=== PATIENT | male | born 1960 | race Caucasian/White ===

== ENCOUNTER 2023-01-09 06:19 | Emergency (ER) | payer MEDICAID ==
[~2023-01-09] VITALS: Ht 172.7 cm; Wt 75.0 kg
[~2023-01-09 06:19] MED LIST: LANTUS SQ; NEOM3.5O9 LEFTEYE; PANT40TA54 PO
[2023-01-09 07:03] VITALS: TEMP 97
[2023-01-09] MEDS ORDERED: normal saline 1000ML IV soln IVB ONE (07:10)
[2023-01-09 08:00] LABS: BASOPHILS % (AUTO) 0.6 % (0-1); EOSINOPHILS # (AUTO) 0.1 X10'3 (0-0.9); EOSINOPHILS % (AUTO) 1.3 % (0-6); HEMATOCRIT 39.5 % (42.0-52.0); HEMOGLOBIN 13.5 g/dl (14.0-17.9); LYMPHOCYTES # (AUTO) 1.2 X10'3 (1.1-4.8); LYMPHOCYTES % (AUTO) 14.1 % (21-51); MEAN CORPUSCULAR HEMOGLOBIN 34.5 PG (27.0-31.0); MEAN CORPUSCULAR HGB CONC 34.3 g/dL (33.0-36.5); MEAN CORPUSCULAR VOLUME 100.5 FL (78-98); MEAN PLATELET VOLUME 9.8 FL (7.4-10.4); MONOCYTES % (AUTO) 11.7 % (2-12); NEUTROPHILS # (AUTO) 5.9 X10'3 (1.8-7.7); NEUTROPHILS % (AUTO) 72.3 % (42-75); PLATELET COUNT 98 X10'3 (140-440); RED BLOOD COUNT 3.93 X10'6 (4.70-6.10); RED CELL DISTRIBUTION WIDTH 15.1 % (11.5-14.5); WHITE BLOOD COUNT 8.2 X10'3 (4.5-11.0)
--- NOTE | 2023-01-09 08:03 | NUR ---
PATIENT WITH MULTIPLE EPISODES OF SWINGING ARMS AND SWEARING AT STAFF, PATIENT AMBULATORY AND ALERT AND ORIENTED WHEN ASKING FOR SUPPLIES. THIS RN ATTEMPTED MULTIPLE TIMES TO RE-DIRECT PATIENT AND ASSIST PATIENT TO RESTROOM. PATIENT AMBULATED TO THE WALL AND URINATED THROUGHOUT THE ROOM. PER DR. FERNANDES, PATIENT OK TO GO TO THE BUS STOP. PATIENT REFUSING TO GIVE STAFF ADDRESS FOR A CAB. PATIENT NOTED INTERMITTENTLY NOT TALKING TO STAFF BUT HAS DEMONSTRATED ABILITY TO THIS RN FOR AMBULATION AND ALERT AND ORIENTED. ESCORTED OUT BY RN AND SECURITY.
[2023-01-09 08:08] VITALS: BP 138/78; PULSE 87; RESP 18; O2SAT 99
[2023-01-09 08:36] LABS: ALANINE AMINOTRANSFERASE 54 U/L (12-78); ALBUMIN 2.2 G/DL (3.4-5.0); ALBUMIN/GLOBULIN RATIO 0.5 (1.1-1.5); ALKALINE PHOSPHATASE 163 IU/L (46-116); ANION GAP 8 (8-16); ASPARTATE AMINO TRANSFERASE 44 U/L (10-37); BILIRUBIN,TOTAL 1.7 MG/DL (0.1-1.0); BLOOD UREA NITROGEN 13 MG/DL (7-18); BUN/CREATININE RATIO 14.6 (10.0-20.0); CALCIUM 8.1 MG/DL (8.5-10.1); CHLORIDE 108 MMOL/L (99-107); CREATININE 0.89 MG/DL (0.60-1.10); LIPASE 85 U/L (73-393); POTASSIUM 4.3 MMOL/L (3.5-5.1); SODIUM 139 MMOL/L (135-145); TOTAL CARBON DIOXIDE 23.1 MMOL/L (24-32); TOTAL PROTEIN 6.6 G/DL (6.4-8.2); eGFR 87 ML/MIN
[2023-01-09 08:40] LABS: LARGE PLATELETS FEW; PLATELET ESTIMATE DECREASED
[2023-01-09 08:44] LABS: GLUCOSE 416 MG/DL (70-104)
[2023-01-09] MEDS ORDERED: INSU100V56 SQ (23:42)
[2023-01-09] MEDS ORDERED: PANT-47 PO (23:47)
[2023-01-09] MEDS ORDERED: NEOM3.5O31 LEFTEYE (23:47)
== END 2023-01-09 08:09 | disposition left against medical advice (07) ==
LOC: ER 06:19
DX: R45.1 Restlessness and agitation (principal); F15.90 Other stimulant use, unspecified, uncomplicated; Z86.19 Personal history of other infectious and parasitic diseases; Z79.4 Long term (current) use of insulin; Z79.2 Long term (current) use of antibiotics; Z79.899 Other long term (current) drug therapy
CPT/HCPCS: 36415; 80053; 82009; 82948; 83690; 85008; 85025; 99283; J7030

== ENCOUNTER 2023-01-09 16:32 | Inpatient (IN) | payer MEDICAID ==
[~2023-01-09] VITALS: Ht 167.6 cm; Wt 68.2 kg
[2023-01-09] MEDS ORDERED: normal saline 1000ml 1,000 ML IV ONE (17:25)
[2023-01-09 17:44] LABS: CLARITY,URINE SLIGHTLY CLOUDY (Clear); COLOR,URINE YELLOW (Yellow); GLUCOSE, URINE >=1000 mg/dl (Neg); KETONES,URINE NEGATIVE (Neg); LEUKOCYTE ESTERASE ,URINE NEGATIVE (Neg); NITRITES, URINE NEGATIVE (Neg); OCCULT BLOOD,URINE NEGATIVE (Neg); PROTEIN,URINE NEGATIVE (Neg)
[2023-01-09] MEDS ORDERED: normal saline 1000ML IV soln IVB ONE (17:50)
[2023-01-09 17:55] LABS: ALANINE AMINOTRANSFERASE 62 U/L (12-78); ALBUMIN 2.8 G/DL (3.4-5.0); ALBUMIN/GLOBULIN RATIO 0.6 (1.1-1.5); ALKALINE PHOSPHATASE 131 IU/L (46-116); ANION GAP 10 (8-16); ASPARTATE AMINO TRANSFERASE 44 U/L (10-37); BILIRUBIN,TOTAL 2.7 MG/DL (0.1-1.0); BLOOD UREA NITROGEN 16 MG/DL (7-18); BUN/CREATININE RATIO 13.7 (10.0-20.0); CHLORIDE 110 MMOL/L (99-107); CREATININE 1.17 MG/DL (0.60-1.10); POTASSIUM 4.1 MMOL/L (3.5-5.1); SODIUM 143 MMOL/L (135-145); TOTAL CARBON DIOXIDE 22.6 MMOL/L (24-32); TOTAL PROTEIN 7.6 G/DL (6.4-8.2); eGFR 63 ML/MIN
[2023-01-09 17:59] LABS: UA COLLECTION TYPE FOLEY CATH
[2023-01-09 18:00] LABS: RENAL CELLS, URINE MANY /HPF; SQUAMOUS EPITHELIAL CELL,UR FEW /LPF (FEW)
[2023-01-09 18:01] LABS: BASOPHILS % (AUTO) 0.5 % (0-1); EOSINOPHILS % (AUTO) 0.6 % (0-6); HEMATOCRIT 42.5 % (42.0-52.0); HEMOGLOBIN 14.7 g/dl (14.0-17.9); LYMPHOCYTES # (AUTO) 1.3 X10'3 (1.1-4.8); LYMPHOCYTES % (AUTO) 18.8 % (21-51); MEAN CORPUSCULAR HEMOGLOBIN 34.7 PG (27.0-31.0); MEAN CORPUSCULAR HGB CONC 34.7 g/dL (33.0-36.5); MEAN CORPUSCULAR VOLUME 99.9 FL (78-98); MEAN PLATELET VOLUME 10.1 FL (7.4-10.4); MONOCYTES # (AUTO) 0.8 X10'3 (0-0.9); MONOCYTES % (AUTO) 11.5 % (2-12); NEUTROPHILS # (AUTO) 4.7 X10'3 (1.8-7.7); NEUTROPHILS % (AUTO) 68.6 % (42-75); PLATELET COUNT 124 X10'3 (140-440); RED BLOOD COUNT 4.25 X10'6 (4.70-6.10); RED CELL DISTRIBUTION WIDTH 14.9 % (11.5-14.5); WHITE BLOOD COUNT 6.9 X10'3 (4.5-11.0)
[2023-01-09 18:01] LABS: BACTERIA,URINE FEW /HPF (Neg); MUCUS STRANDS FEW /LPF (Neg); RBC,URINE 0-2 /HPF (0-2); TRANSITIONAL EPI CELLS,URINE FEW /HPF; WBC,URINE 0-4 /HPF (0-4)
[2023-01-09 18:07] LABS: URINE AMPHETAMINE SCREEN NEGATIVE (Neg); URINE BARBITUATE SCREEN NEGATIVE (Neg); URINE BENZODIAZEPINES SCREEN NEGATIVE (Neg); URINE CANNABINOID SCREEN POSITIVE (Neg); URINE COCAINE SCREEN NEGATIVE (Neg); URINE METHADONE SCREEN NEGATIVE (Neg); URINE OPIATE SCREEN NEGATIVE (Neg); URINE PHENCYCLIDINE SCREEN NEGATIVE (Neg)
[2023-01-09 19:26] LABS: LIPASE < 50 U/L (73-393)
[2023-01-09 19:27] LABS: ETHANOL < 0.010 GM/DL (0.0-0.010); GLUCOSE 380 MG/DL (70-104)
--- NOTE | 2023-01-09 21:20 | NUR ---
pt placed on hospital bed.
[2023-01-09] MEDS ORDERED: potassium Cl 20 mEq SR tablet PO PRN ×2 (22:00)
[2023-01-09] MEDS ORDERED: dextrose 50%-water 50ml dispensing syringe IV PRN ×2 (22:00)
[2023-01-09] MEDS ORDERED: haloperidol 5mg tablet PO PRN (22:00)
[2023-01-09] MEDS ORDERED: magnesium 4gm in 100ml NS 100 ML IV PRN (22:00)
[2023-01-09] MEDS ORDERED: MESSAGE TO PHARMACY PO ONE (22:00)
[2023-01-09] MEDS ORDERED: glucagon, human recombinant 1mg kit SUBCUT PRN (22:00)
[2023-01-09] MEDS ORDERED: LORazepam 2 mg/ml vial IV PRN (22:00)
[2023-01-09] MEDS ORDERED: mag hydrox/Alum hydrox/simeth 30ml oral suspension PO PRN (22:00)
[2023-01-09] MEDS ORDERED: acetaminophen 325mg tablet PO PRN (22:00)
[2023-01-09] MEDS ORDERED: potassium Cl 40MEQ/1/2NS 520ml 520 ML IV PRN (22:00)
[2023-01-09] MEDS ORDERED: DEXTROSE 15 GM of carb/4 tabs (each vial/BOTTLE has 4 tablets) PO PRN ×2 (22:00)
[2023-01-09] MEDS ORDERED: ondansetron/PF 4mg/2ml inj IV PRN (22:00)
--- NOTE | 2023-01-09 22:20 | NUR ---
PT GIVEN FOOD PER CL. LIQUID DIET.
[2023-01-09] MEDS: normal saline 1000ml 1,000 ML IV SCH (22:27)
--- NOTE | 2023-01-09 22:44 | NUR ---
OKAY TO GIVE UPDATES TO ALMA, SISTER, PER PT.
--- NOTE | 2023-01-09 22:46 | NUR ---
DR. TRAORE MADE AWARE OF & IS OKAY WITH PT'S HR BEING IN LOW 50'S/HIGH 40'S LONG PT IS AYSMPTOMATIC. PT ASYMPTOMATIC.
[2023-01-09] MEDS ORDERED: INSU100V56 SQ (23:42)
[2023-01-09] MEDS ORDERED: PANT-47 PO (23:47)
[2023-01-09] MEDS ORDERED: NEOM3.5O31 LEFTEYE (23:47)
[2023-01-10] MEDS: lactulose 20gm/30ml cup PO SCH ×4 (02:14→20:00)
[2023-01-10 02:36] LABS: ALANINE AMINOTRANSFERASE 47 U/L (12-78); ALBUMIN/GLOBULIN RATIO 0.5 (1.1-1.5); ALKALINE PHOSPHATASE 91 IU/L (46-116); ANION GAP 7 (8-16); ASPARTATE AMINO TRANSFERASE 31 U/L (10-37); BILIRUBIN,TOTAL 2.2 MG/DL (0.1-1.0); BLOOD UREA NITROGEN 14 MG/DL (7-18); BUN/CREATININE RATIO 17.9 (10.0-20.0); CALCIUM 8.3 MG/DL (8.5-10.1); CHLORIDE 114 MMOL/L (99-107); CREATININE 0.78 MG/DL (0.60-1.10); GLUCOSE 260 MG/DL (70-104); LIPASE 54 U/L (73-393); MAGNESIUM 1.7 MG/DL (1.5-2.4); PHOSPHORUS 3.1 MG/DL (2.3-4.5); POTASSIUM 3.7 MMOL/L (3.5-5.1); SODIUM 145 MMOL/L (135-145); TOTAL CARBON DIOXIDE 24.3 MMOL/L (24-32); TOTAL PROTEIN 5.8 G/DL (6.4-8.2); eGFR > 90 ML/MIN
[2023-01-10 02:37] LABS: BASOPHILS # (AUTO) 0.1 X10'3 (0-0.2); BASOPHILS % (AUTO) 0.8 % (0-1); EOSINOPHILS # (AUTO) 0.1 X10'3 (0-0.9); EOSINOPHILS % (AUTO) 1.5 % (0-6); HEMATOCRIT 38.5 % (42.0-52.0); HEMOGLOBIN 13.1 g/dl (14.0-17.9); LYMPHOCYTES # (AUTO) 2.8 X10'3 (1.1-4.8); LYMPHOCYTES % (AUTO) 32.5 % (21-51); MEAN CORPUSCULAR HGB CONC 34.1 g/dL (33.0-36.5); MEAN CORPUSCULAR VOLUME 99.7 FL (78-98); MEAN PLATELET VOLUME 9.5 FL (7.4-10.4); MONOCYTES # (AUTO) 1.3 X10'3 (0-0.9); MONOCYTES % (AUTO) 14.9 % (2-12); NEUTROPHILS # (AUTO) 4.4 X10'3 (1.8-7.7); NEUTROPHILS % (AUTO) 50.3 % (42-75); PLATELET COUNT 101 X10'3 (140-440); RED BLOOD COUNT 3.86 X10'6 (4.70-6.10); RED CELL DISTRIBUTION WIDTH 15.2 % (11.5-14.5); WHITE BLOOD COUNT 8.7 X10'3 (4.5-11.0)
--- NOTE | 2023-01-10 06:39 | NUR ---
RN ATTEMPTED TO CALL REPORT AND RECEIVING RN IN RM WITH A PT. RN REQ SHE CALL BACK NADEEN CHARGE STATED RM NEEDED.
[2023-01-10 07:00] VITALS: BP 131/55; PULSE 63; RESP 16; TEMP 98.2; O2SAT 98
[2023-01-10] MEDS: K and/or MAG REPLACEMENT MC SCH ×2 (08:00→20:00)
[2023-01-10] MEDS: docusate sod 100mg capsule PO SCH ×2 (08:41→20:00)
[2023-01-10] MEDS: thiamine 100mg tablet PO SCH ×2 (08:42→20:00)
[2023-01-10] MEDS: multivitamins, therapeutics tablet PO SCH (08:42)
[2023-01-10] MEDS: pantoprazole 40mg Tablet.DR PO SCH (08:44)
[2023-01-10] MEDS: normal saline 1000ml 1,000 ML IV SCH ×2 (08:51→18:01)
[2023-01-10] MEDS: insulin Lispro (HumaLOG) vial - multi-dose SQ SCH ×3 (09:03→19:04)
[2023-01-10 09:35] VITALS: RESP 14
[2023-01-10 10:00] VITALS: BP 130/63; PULSE 60; RESP 16; TEMP 97.4; O2SAT 99
--- NOTE | 2023-01-10 15:02 | NUR ---
PRESSURE ULCER EDUCATION: DEFINITION: A pressure ulcer is an area of skin that breaks down when you stay in one position too long. The constant pressure against the skin reduces the blood flow to that area and the affected tissue dies. CAUSES: "Being bedridden or in a wheelchair "Fragile skin "Having a chronic condition, such as diabetes or vascular disease "Inability to move certain parts of your body without assistance "Older age "Incontinence of urine or stool SYMPTOMS: "A reddened area that DOES NOT turn white when pressed on - this can be the beginning of a pressure ulcer "A blister, deep sore or a crater - these can be advanced pressure ulcers FIRST AID: "Relieve the pressure on this area "Keep the area clean and dry "Call your primary doctor if you see any of the above symptoms "DO NOT massage the area "DO NOT use a donut shaped or ring shaped pillow- these actually interfere with the blood flow and cause complications PREVENTION: "Check for pressure ulcers everyday "Change position at least every two hours to relieve pressure "Use items that help relieve pressure- pillows, sheepskin, foam padding, and powders. "Keep skin clean and dry "Eat healthy well balanced meals "Exercise daily IF YOU SEE ANY OF THESE SYMPTOMS WHILE IN THE HOSPITAL - TELL YOUR NURSE IMMEDIATELY. IF YOU SEE ANY OF THESE SYMPTOMS WHILE AT HOME OR HAVE ANY QUESTIONS OR CONCERNS ABOUT PRESSURE ULCERS - CALL YOUR PRIMARY DOCTOR IMMEDIATELY. Addendum: 01/10/23 at 1502 by Daria Brewer LVN Amended: Links added.
--- NOTE | 2023-01-10 15:03 | NUR ---
The following was taken from the patients H&P: This 62 yr. old male was brought to the ER with ALOC probable R/t heat exposure. She was found to have a BG of 425. His behavior became erratic and he left AMA but was returned after being found slumped over by paramedics. He has a medical history of liver failure w/cirrhosis, Hep C, recurrent BLE cellulitis and DM. He reports using tobacco daily. He uses alcohol daily and reports the consistent use of methamphetamines. He states that he lives at home with family. CXR was positive for central interstitium prominence. His most recent labs show a WBC of 8.7, HGB 13.1, BUN 14, BG 310 and an albumin of 2. Urine toxicology was positive for marijuana. He was admitted for medical management of acute hepatic encephalopathy with high serum ammonia level per progress notes. Wound care in for evaluation of sacrococcygeal skin breakdown per nursing consult request. The pt. was found sitting up in bed in no apparent acute distress. Greeted and explained the intent. He appears to be alert to himself and the situation. He states that he is very hungry. Per nursing he has eaten all of his breakfast and many snacks, it is near lunch time and he has been reminded that lunch is soon to be served. He continues to state that he is extremely hungry but is agreeable to care. There is discoloration to his left hand with dry scabbing to the dorsal aspect. His bilateral LEs are mildly edematous with intact and reddened skin. His sacrococcygeal area has pink and blanching skin. Hi heels have thickened, normal for color skin. His legs and feet were cleansed and lotion applied. He is able to reposition himself in bed with no apparent restrictions. Bed left in the lowest position with call light in reach. Report was given to his primary nurse. Given the patient has no open skin areas and adequate mobility, basic skin care is deferred to nursing.
--- NOTE | 2023-01-10 15:46 | NUR ---
Agree with [facility] [employer] charting
--- NOTE | 2023-01-10 17:00 | NUR ---
I have reviewed and agree with interventions, assessments, and documentation by Aissatou Swanson LVN.
[2023-01-10 18:00] VITALS: BP 134/61; PULSE 56; RESP 14; TEMP 97.4; O2SAT 95
--- NOTE | 2023-01-10 18:00 | NUR ---
Patient in room ORTHO 4010. I have received report from MICAH Reyez and had the opportunity to ask questions and assume patient care.
--- NOTE | 2023-01-10 18:14 | NUR ---
Problems reprioritized. Patient report given, questions answered & plan of care reviewed with Madeleine MORALES.
[2023-01-10] MEDS ORDERED: enoxaparin 40mg/0.4ml syringe SQ SCH (20:00)
[2023-01-10] MEDS: insulin glargine (Lantus) pen - multi-dose SQ SCH (21:06)
[2023-01-10 22:00] VITALS: BP 116/61; PULSE 61; RESP 18; TEMP 98.9; O2SAT 97
[2023-01-11] MEDS: lactulose 20gm/30ml cup PO SCH ×4 (01:54→19:54)
[2023-01-11] MEDS: normal saline 1000ml 1,000 ML IV SCH ×3 (01:55→19:55)
[2023-01-11 06:00] VITALS: BP 111/60; PULSE 61; RESP 18; TEMP 99.1; O2SAT 97
--- NOTE | 2023-01-11 06:08 | NUR ---
Problems reprioritized. Patient report given, questions answered & plan of care reviewed with MICAH Reyez.
[2023-01-11 06:14] LABS: BASOPHILS # (AUTO) 0.1 X10'3 (0-0.2); BASOPHILS % (AUTO) 1.4 % (0-1); EOSINOPHILS # (AUTO) 0.1 X10'3 (0-0.9); HEMATOCRIT 37.9 % (42.0-52.0); HEMOGLOBIN 13.1 g/dl (14.0-17.9); LYMPHOCYTES # (AUTO) 2.9 X10'3 (1.1-4.8); LYMPHOCYTES % (AUTO) 41.8 % (21-51); MEAN CORPUSCULAR HEMOGLOBIN 34.5 PG (27.0-31.0); MEAN CORPUSCULAR HGB CONC 34.5 g/dL (33.0-36.5); MEAN CORPUSCULAR VOLUME 100.2 FL (78-98); MEAN PLATELET VOLUME 9.7 FL (7.4-10.4); MONOCYTES % (AUTO) 14.9 % (2-12); NEUTROPHILS # (AUTO) 2.7 X10'3 (1.8-7.7); NEUTROPHILS % (AUTO) 39.9 % (42-75); PLATELET COUNT 97 X10'3 (140-440); RED BLOOD COUNT 3.79 X10'6 (4.70-6.10); RED CELL DISTRIBUTION WIDTH 14.8 % (11.5-14.5); WHITE BLOOD COUNT 6.8 X10'3 (4.5-11.0)
[2023-01-11 06:38] LABS: ALANINE AMINOTRANSFERASE 49 U/L (12-78); ALBUMIN 1.9 G/DL (3.4-5.0); ALBUMIN/GLOBULIN RATIO 0.5 (1.1-1.5); ALKALINE PHOSPHATASE 98 IU/L (46-116); ANION GAP 5 (8-16); ASPARTATE AMINO TRANSFERASE 44 U/L (10-37); BILIRUBIN,TOTAL 1.8 MG/DL (0.1-1.0); BLOOD UREA NITROGEN 11 MG/DL (7-18); BUN/CREATININE RATIO 12.6 (10.0-20.0); CALCIUM 8.3 MG/DL (8.5-10.1); CHLORIDE 108 MMOL/L (99-107); CREATININE 0.87 MG/DL (0.60-1.10); GLUCOSE 238 MG/DL (70-104); LIPASE 75 U/L (73-393); MAGNESIUM 1.6 MG/DL (1.5-2.4); POTASSIUM 3.8 MMOL/L (3.5-5.1); SODIUM 137 MMOL/L (135-145); TOTAL CARBON DIOXIDE 23.6 MMOL/L (24-32); TOTAL PROTEIN 5.7 G/DL (6.4-8.2); eGFR 89 ML/MIN
[2023-01-11] MEDS: docusate sod 100mg capsule PO SCH ×2 (07:22→19:55)
[2023-01-11] MEDS: multivitamins, therapeutics tablet PO SCH (07:22)
[2023-01-11] MEDS: pantoprazole 40mg Tablet.DR PO SCH (07:22)
[2023-01-11] MEDS: thiamine 100mg tablet PO SCH ×2 (07:23→19:54)
[2023-01-11 08:00] VITALS: RESP 16; O2SAT 99
[2023-01-11] MEDS: K and/or MAG REPLACEMENT MC SCH ×2 (09:01→18:43)
--- NOTE | 2023-01-11 09:12 | NUR ---
Per EMR pt with T2DM, poorly controlled with last A1c >12.0% 12/27. Pt was seen at bedside 12/28 at previous admit for written and verbal DM education. RD contact information provided at that time. No further education planned at this time though will remain available should pt have questions. Noted wound care has been consulted for possible DTI to buttocks, assessment pending at this time. Pt currently on a CHO controlled diet and documented with 100% PO intake of meals. Pt requested double protein TID at previous admit, will resume this admit for satiety. Will continue to follow and monitor need for further nutrition intervention. Addendum: 01/11/23 at [address] Amended: Links added.
[2023-01-11] MEDS: insulin Lispro (HumaLOG) vial - multi-dose SQ SCH ×3 (09:16→19:52)
[2023-01-11 10:00] VITALS: BP_SYST 108; BP_DIAS 55; BP_DIAS 88; PULSE 56; RESP 16; TEMP 98.2; O2SAT 99
[2023-01-11 18:00] VITALS: BP 123/55; PULSE 60; RESP 18; TEMP 98.4; O2SAT 98
--- NOTE | 2023-01-11 18:00 | NUR ---
I have reviewed and agree with the interventions, assessments, and documentation by Aissatou Swanson LVN.
[2023-01-11 19:00] VITALS: RESP 16; O2SAT 98
[2023-01-11] MEDS: insulin glargine (Lantus) pen - multi-dose SQ SCH (21:00)
[2023-01-11 22:00] VITALS: BP 104/55; PULSE 70; RESP 16; TEMP 98.5; O2SAT 97
[2023-01-11] MEDS ORDERED: LORazepam 2 mg/ml vial IV PRN (22:00)
[2023-01-11] MEDS ORDERED: LORazepam 1 MG tablet PO PRN (22:00)
[2023-01-12] MEDS: lactulose 20gm/30ml cup PO SCH ×4 (03:28→19:21)
[2023-01-12] MEDS: normal saline 1000ml 1,000 ML IV SCH (05:07)
[2023-01-12 06:00] VITALS: BP 122/45; PULSE 72; RESP 16; TEMP 98.2; O2SAT 99
[2023-01-12 06:11] LABS: BASOPHILS # (AUTO) 0.1 X10'3 (0-0.2); BASOPHILS % (AUTO) 0.8 % (0-1); EOSINOPHILS # (AUTO) 0.1 X10'3 (0-0.9); EOSINOPHILS % (AUTO) 1.9 % (0-6); HEMATOCRIT 38.8 % (42.0-52.0); HEMOGLOBIN 13.6 g/dl (14.0-17.9); LYMPHOCYTES # (AUTO) 2.4 X10'3 (1.1-4.8); LYMPHOCYTES % (AUTO) 32.8 % (21-51); MEAN CORPUSCULAR HEMOGLOBIN 34.8 PG (27.0-31.0); MEAN CORPUSCULAR HGB CONC 34.9 g/dL (33.0-36.5); MEAN CORPUSCULAR VOLUME 99.7 FL (78-98); MEAN PLATELET VOLUME 9.8 FL (7.4-10.4); MONOCYTES # (AUTO) 1.2 X10'3 (0-0.9); MONOCYTES % (AUTO) 15.5 % (2-12); NEUTROPHILS # (AUTO) 3.6 X10'3 (1.8-7.7); PLATELET COUNT 95 X10'3 (140-440); RED BLOOD COUNT 3.89 X10'6 (4.70-6.10); RED CELL DISTRIBUTION WIDTH 15.2 % (11.5-14.5); WHITE BLOOD COUNT 7.4 X10'3 (4.5-11.0)
[2023-01-12 06:15] LABS: ALANINE AMINOTRANSFERASE 59 U/L (12-78); ALBUMIN 2.1 G/DL (3.4-5.0); ALBUMIN/GLOBULIN RATIO 0.5 (1.1-1.5); ALKALINE PHOSPHATASE 109 IU/L (46-116); ANION GAP 5 (8-16); ASPARTATE AMINO TRANSFERASE 63 U/L (10-37); BILIRUBIN,TOTAL 1.6 MG/DL (0.1-1.0); BLOOD UREA NITROGEN 12 MG/DL (7-18); BUN/CREATININE RATIO 13.8 (10.0-20.0); CALCIUM 8.3 MG/DL (8.5-10.1); CHLORIDE 104 MMOL/L (99-107); CREATININE 0.87 MG/DL (0.60-1.10); GLUCOSE 374 MG/DL (70-104); LIPASE 110 U/L (73-393); MAGNESIUM 1.6 MG/DL (1.5-2.4); PHOSPHORUS 2.8 MG/DL (2.3-4.5); POTASSIUM 4.3 MMOL/L (3.5-5.1); SODIUM 133 MMOL/L (135-145); TOTAL CARBON DIOXIDE 23.8 MMOL/L (24-32); TOTAL PROTEIN 6.2 G/DL (6.4-8.2); eGFR 89 ML/MIN
[2023-01-12 06:51] LABS: PLATELET ESTIMATE DECREASED; TOTAL CELLS COUNTED 100
[2023-01-12 06:52] LABS: LARGE PLATELETS FEW
[2023-01-12] MEDS: thiamine 100mg tablet PO SCH ×2 (07:23→19:21)
[2023-01-12] MEDS: docusate sod 100mg capsule PO SCH ×2 (07:23→19:21)
[2023-01-12] MEDS: multivitamins, therapeutics tablet PO SCH (07:23)
[2023-01-12] MEDS: pantoprazole 40mg Tablet.DR PO SCH (07:23)
[2023-01-12 08:00] VITALS: RESP 20; O2SAT 97
[2023-01-12] MEDS: K and/or MAG REPLACEMENT MC SCH ×2 (08:00→19:25)
[2023-01-12] MEDS: insulin Lispro (HumaLOG) vial - multi-dose SQ SCH ×2 (09:31→18:55)
[2023-01-12 10:00] VITALS: BP 125/64; PULSE 63; RESP 20; TEMP 98.1; O2SAT 97
--- NOTE | 2023-01-12 10:59 | NUR ---
Initial: Pt admit for acute encephalopathy secondary to hepatic encephalopathy. Wound care assessment for possible DTI on buttocks still pending at this time. Pt on a CHO controlled diet and receiving double protein TID and eating well, documented with 100% PO intake of all meals meeting estimated nutrient needs. Pt continues receiving routine Thiamine, Folic acid, and MVI for EtOH. LBM 8/, documented with no GI symptoms though likely to experience diarrhea secondary to routine Lactulose. Serum ammonia elevated this morning at 173 which is down from 176 8/. No further nutrition intervention implemented at this time. Will continue to follow and make recommendations as appropriate. Recommendations: 1) Continue CHO controlled diet 2) Double eggs WB, double meat BIDLD 3) Continue routine Thiamine, Folic acid, and MVI for EtOH hx with elevated MCV 4) Routine bowel care per rx 5) Scaled weight this admit; subsequent weekly scaled weights Addendum: 01/12/23 at [address] Amended: Links added.
--- NOTE | 2023-01-12 11:13 | NUR ---
F/u: Pt seen by wound care, per note it appears pt does not have any open wounds. No further nutrition intervention warranted at this time. Will continue to follow. Addendum: 01/12/23 at [address] Amended: Links added.
--- NOTE | 2023-01-12 18:00 | NUR ---
I have reviewed and agree with interventions, assessments, and documentation by Asisatou Swanson LVN.
[2023-01-12 19:00] VITALS: BP 142/70; PULSE 55; RESP 20; TEMP 97.6; O2SAT 99
[2023-01-12 20:00] VITALS: RESP 20; O2SAT 99
[2023-01-12] MEDS: insulin glargine (Lantus) pen - multi-dose SQ SCH (21:42)
[2023-01-12 22:00] VITALS: BP 118/65; PULSE 67; RESP 16; TEMP 98.1; O2SAT 98
--- NOTE | 2023-01-12 22:36 | NUR ---
Patient in room ORTHO 4010. I have received report from rebekah wakefield and had the opportunity to ask questions and assume patient care.
--- NOTE | 2023-01-12 23:33 | NUR ---
COOPERATIVE MANAGER documentation: I have reviewed and agree with all interventions, assessments performed and documented by Aissatou OBRIEN .
[2023-01-13] MEDS: lactulose 20gm/30ml cup PO SCH ×2 (01:34→07:48)
--- NOTE | 2023-01-13 02:14 | NUR ---
Problems reprioritized. Patient report given, questions answered & plan of care reviewed with truman alvarado.
[2023-01-13 06:00] VITALS: BP 142/85; PULSE 76; RESP 16; TEMP 98.4; O2SAT 95
--- NOTE | 2023-01-13 06:25 | NUR ---
Patient in room ORTH[facility] 4010. I have received report from Daniela MORALES and had the opportunity to ask questions and assume patient care.
--- NOTE | 2023-01-13 06:39 | NUR ---
Report to Rosemarie Spence.
[2023-01-13 06:50] LABS: BASOPHILS # (AUTO) 0.1 X10'3 (0-0.2); BASOPHILS % (AUTO) 1.1 % (0-1); EOSINOPHILS # (AUTO) 0.2 X10'3 (0-0.9); EOSINOPHILS % (AUTO) 2.1 % (0-6); HEMATOCRIT 40.6 % (42.0-52.0); HEMOGLOBIN 14.1 g/dl (14.0-17.9); LYMPHOCYTES # (AUTO) 2.4 X10'3 (1.1-4.8); LYMPHOCYTES % (AUTO) 29.5 % (21-51); MEAN CORPUSCULAR HEMOGLOBIN 34.8 PG (27.0-31.0); MEAN CORPUSCULAR HGB CONC 34.8 g/dL (33.0-36.5); MEAN CORPUSCULAR VOLUME 99.9 FL (78-98); MEAN PLATELET VOLUME 9.5 FL (7.4-10.4); MONOCYTES # (AUTO) 1.1 X10'3 (0-0.9); MONOCYTES % (AUTO) 13.1 % (2-12); NEUTROPHILS # (AUTO) 4.4 X10'3 (1.8-7.7); NEUTROPHILS % (AUTO) 54.2 % (42-75); PLATELET COUNT 100 X10'3 (140-440); RED BLOOD COUNT 4.06 X10'6 (4.70-6.10); RED CELL DISTRIBUTION WIDTH 15.2 % (11.5-14.5); WHITE BLOOD COUNT 8.2 X10'3 (4.5-11.0)
[2023-01-13 07:03] LABS: ALANINE AMINOTRANSFERASE 61 U/L (12-78); ALBUMIN 2.2 G/DL (3.4-5.0); ALBUMIN/GLOBULIN RATIO 0.5 (1.1-1.5); ALKALINE PHOSPHATASE 101 IU/L (46-116); ANION GAP 7 (8-16); ASPARTATE AMINO TRANSFERASE 56 U/L (10-37); BILIRUBIN,TOTAL 2.1 MG/DL (0.1-1.0); BLOOD UREA NITROGEN 11 MG/DL (7-18); BUN/CREATININE RATIO 13.6 (10.0-20.0); CALCIUM 8.5 MG/DL (8.5-10.1); CHLORIDE 104 MMOL/L (99-107); CREATININE 0.81 MG/DL (0.60-1.10); GLUCOSE 268 MG/DL (70-104); LIPASE 119 U/L (73-393); MAGNESIUM 1.8 MG/DL (1.5-2.4); PHOSPHORUS 2.8 MG/DL (2.3-4.5); POTASSIUM 4.1 MMOL/L (3.5-5.1); SODIUM 136 MMOL/L (135-145); TOTAL CARBON DIOXIDE 24.8 MMOL/L (24-32); TOTAL PROTEIN 6.5 G/DL (6.4-8.2); eGFR > 90 ML/MIN
[2023-01-13] MEDS: pantoprazole 40mg Tablet.DR PO SCH (07:49)
[2023-01-13] MEDS: thiamine 100mg tablet PO SCH (07:49)
[2023-01-13] MEDS: multivitamins, therapeutics tablet PO SCH (07:49)
[2023-01-13] MEDS: docusate sod 100mg capsule PO SCH (07:49)
[2023-01-13 08:00] VITALS: RESP 16; O2SAT 95
[2023-01-13] MEDS: K and/or MAG REPLACEMENT MC SCH (08:00)
[2023-01-13] MEDS ORDERED: SPIR100T5 PO (09:44)
[2023-01-13] MEDS ORDERED: INSU100V56 SQ ×2 (09:44→10:23)
[2023-01-13] MEDS ORDERED: LACT10SO7 PO ×2 (09:44→10:23)
[2023-01-13] MEDS: insulin Lispro (HumaLOG) vial - multi-dose SQ SCH (10:08)
--- NOTE | 2023-01-13 10:17 | NUR ---
[facility] documentation: I have reviewed and agree with all interventions, assessments performed and documented by Rosemarie Burgess LVN.
--- NOTE | 2023-01-13 12:00 | NUR ---
Spoke with steam fitter supervisor and she approved patient to get a ride home with hospital paying the bill
[2023-01-13] MEDS ORDERED: SPIR25TA5 PO (12:18)
--- NOTE | 2023-01-13 13:30 | NUR ---
Patient discharged home and IV removed by RN. All discharge instructions were explained and questions were answered. Patient alert and appropriate for discharge. Patient was picked up by CAT, approved by housekeeping/laundry. Patient was wheeled downstairs and into [facility] vehicle.
[2023-01-13] MEDS ORDERED: LORazepam 1 MG tablet PO PRN (22:00)
[2023-01-13] MEDS ORDERED: LORazepam 2 mg/ml vial IV PRN (22:00)
[2023-01-14] MEDS ORDERED: folic acid 1mg tablet PO SCH (08:00)
== END 2023-01-13 13:20 | disposition home or self-care (01) ==
LOC: ER 16:32 → ED HOLD 22:12 → ORTHO 4S 01-10 07:52
PROVIDERS: ADMIT Family Medicine; ATTEND Internal Medicine
DX: K76.82 Hepatic encephalopathy (principal); K72.90 Hepatic failure, unspecified without coma; K76.6 Portal hypertension; E46 Unspecified protein-calorie malnutrition; D63.8 Anemia in other chronic diseases classified elsewhere; K74.60 Unspecified cirrhosis of liver; E11.65 Type 2 diabetes mellitus with hyperglycemia; B19.20 Unspecified viral hepatitis C without hepatic coma; D69.59 Other secondary thrombocytopenia; G47.00 Insomnia, unspecified; F10.20 Alcohol dependence, uncomplicated; E86.0 Dehydration; F19.10 Other psychoactive substance abuse, uncomplicated; R74.01 Elevation of levels of liver transaminase levels; F17.210 Nicotine dependence, cigarettes, uncomplicated; F12.90 Cannabis use, unspecified, uncomplicated; F15.90 Other stimulant use, unspecified, uncomplicated; Z79.84 Long term (current) use of oral hypoglycemic drugs; Z91.148 Patient's other noncompliance with medication regimen for other reason; Z68.24 Body mass index [BMI] 24.0-24.9, adult; Z79.899 Other long term (current) drug therapy; Z79.4 Long term (current) use of insulin; Z71.6 Tobacco abuse counseling
CPT/HCPCS: 36415; 71045; 80053; 80305; 80320; 81001; 82140; 82948; 83605; 83690; 83735; 84100; 84484; 85007; 85025; 85610; 87040; 87081; 97161; 99285; A4314; A6250; G0378; J1650; J1815; J7030

== ENCOUNTER 2023-08-17 04:56 | Inpatient (IN) | payer MEDICAID ==
[~2023-08-17] VITALS: Ht 170.2 cm; Wt 66.0 kg
[~2023-08-17 04:56] MED LIST changes: +INSU100V56 SQ; +LACT10SO7 PO; -LANTUS SQ; +NEOM3.5O31 LEFTEYE; -NEOM3.5O9 LEFTEYE; +PANT-47 PO; -PANT40TA54 PO; +SPIR25TA5 PO; +[UNRECOGNIZED DRUG - CODE]
[2023-08-17] MEDS: normal saline 1000ml 1,000 ML IV ONE (05:48)
[2023-08-17 06:54] LABS: ALANINE AMINOTRANSFERASE 76 U/L (12-78); ALBUMIN 2.2 G/DL (3.4-5.0); ALKALINE PHOSPHATASE 141 IU/L (46-116); ANION GAP 12 (8-16); ASPARTATE AMINO TRANSFERASE 57 U/L (10-37); BILIRUBIN,TOTAL 3.6 MG/DL (0.1-1.0); BLOOD UREA NITROGEN 14 MG/DL (7-18); BUN/CREATININE RATIO 15.2 (10.0-20.0); CALCIUM 8.1 MG/DL (8.5-10.1); CHLORIDE 108 MMOL/L (99-107); CREATININE 0.92 MG/DL (0.60-1.10); GLUCOSE 293 MG/DL (70-104); SODIUM 142 MMOL/L (135-145); TOTAL CARBON DIOXIDE 22.5 MMOL/L (24-32); eCRCL 78 ML/MIN; eGFR 83 ML/MIN
[2023-08-17 07:01] LABS: ALBUMIN/GLOBULIN RATIO 0.5 (1.1-1.5); TOTAL PROTEIN 6.4 G/DL (6.4-8.2)
[2023-08-17 07:04] LABS: ETHANOL < 10 MG/DL (<10)
[2023-08-17 07:43] LABS: BASOPHILS % (AUTO) 0.5 % (0-1); EOSINOPHILS # (AUTO) 0.1 X10'3 (0-0.9); EOSINOPHILS % (AUTO) 1.4 % (0-6); HEMOGLOBIN 15.9 g/dl (14.0-17.9); LYMPHOCYTES # (AUTO) 1.5 X10'3 (1.1-4.8); LYMPHOCYTES % (AUTO) 18.3 % (21-51); MEAN CORPUSCULAR HEMOGLOBIN 33.7 PG (27.0-31.0); MEAN CORPUSCULAR HGB CONC 34.4 g/dL (33.0-36.5); MEAN PLATELET VOLUME 9.9 FL (7.4-10.4); MONOCYTES # (AUTO) 1.1 X10'3 (0-0.9); MONOCYTES % (AUTO) 13.5 % (2-12); NEUTROPHILS # (AUTO) 5.6 X10'3 (1.8-7.7); NEUTROPHILS % (AUTO) 66.3 % (42-75); PLATELET COUNT 114 X10'3 (140-440); RED CELL DISTRIBUTION WIDTH 14.5 % (11.5-14.5); WHITE BLOOD COUNT 8.4 X10'3 (4.5-11.0)
[2023-08-17 07:46] LABS: BILIRUBIN,URINE NEGATIVE (Neg); CLARITY,URINE CLEAR (Clear); COLOR,URINE YELLOW (Yellow); GLUCOSE, URINE >=1000 mg/dl (Neg); KETONES,URINE NEGATIVE (Neg); LEUKOCYTE ESTERASE ,URINE NEGATIVE (Neg); NITRITES, URINE NEGATIVE (Neg); OCCULT BLOOD,URINE NEGATIVE (Neg); PROTEIN,URINE NEGATIVE (Neg)
[2023-08-17 07:52] LABS: UA COLLECTION TYPE STRAIGHT CATH
[2023-08-17 07:54] LABS: SQUAMOUS EPITHELIAL CELL,UR FEW /LPF (FEW)
[2023-08-17 07:55] LABS: BACTERIA,URINE FEW /HPF (Neg); RBC,URINE 0-2 /HPF (0-2); WBC,URINE 0-4 /HPF (0-4)
[2023-08-17 07:56] LABS: URINE AMPHETAMINE SCREEN POSITIVE (Neg); URINE BARBITUATE SCREEN NEGATIVE (Neg); URINE BENZODIAZEPINES SCREEN NEGATIVE (Neg); URINE CANNABINOID SCREEN NEGATIVE (Neg); URINE COCAINE SCREEN NEGATIVE (Neg); URINE METHADONE SCREEN NEGATIVE (Neg); URINE OPIATE SCREEN NEGATIVE (Neg); URINE PHENCYCLIDINE SCREEN NEGATIVE (Neg)
[2023-08-17] MEDS ORDERED: INSU100V11 SQ (13:48)
[2023-08-17] MEDS ORDERED: mag hydrox/Alum hydrox/simeth 30ml oral suspension PO PRN (14:50)
[2023-08-17] MEDS ORDERED: potassium Cl 20 mEq SR tablet PO PRN ×2 (14:50)
[2023-08-17] MEDS ORDERED: dextrose 50%-water 50ml dispensing syringe IV PRN ×2 (14:50)
[2023-08-17] MEDS ORDERED: potassium Cl 40MEQ/1/2NS 520ml 520 ML IV PRN (14:50)
[2023-08-17] MEDS ORDERED: magnesium 2GM in 50ml NS 50 ML IV PRN (14:50)
[2023-08-17] MEDS ORDERED: magnesium Cl slow-release 64mg tablet PO PRN (14:50)
[2023-08-17] MEDS ORDERED: acetaminophen 325mg tablet PO PRN (14:50)
[2023-08-17] MEDS ORDERED: magnesium 4gm in 100ml NS 100 ML IV PRN (14:50)
[2023-08-17] MEDS ORDERED: magnesium hydroxide 30ml (MOM) UD suspension PO PRN (14:50)
[2023-08-17] MEDS ORDERED: ondansetron/PF 4mg/2ml inj IV PRN (14:50)
[2023-08-17] MEDS ORDERED: DEXTROSE 15 GM of carb/4 tabs (each vial/BOTTLE has 4 tablets) PO PRN ×2 (14:50)
[2023-08-17] MEDS ORDERED: glucagon, human recombinant 1mg kit SUBCUT PRN (14:50)
[2023-08-17] MEDS: MESSAGE TO PHARMACY PO ONE (15:09)
[2023-08-17] MEDS: ziprasidone IM 20mg inj **IM only IM ONE (16:26)
[2023-08-17] MEDS: lactulose 20gm/30ml cup PO ONE (16:26)
[2023-08-17] MEDS: diphenhydrAMINE 50 mg/ml inj IM ONE (16:27)
[2023-08-17] MEDS: haloperidol lactate 5mg/ml inj IM ONE (17:59)
[2023-08-17] MEDS ORDERED: haloperidol lactate 5mg/ml inj IM PRN (18:10)
[2023-08-17] MEDS: LORazepam 2 mg/ml vial IV ONE (19:00)
[2023-08-17] MEDS: rifaximin 550mg tablet PO SCH (20:00)
[2023-08-17] MEDS: lactulose 20gm/30ml cup PO SCH (20:00)
[2023-08-17] MEDS: K and/or MAG REPLACEMENT MC SCH (20:00)
[2023-08-17] MEDS: CefTRIAXone/D5W-Rocephin 1gm 50 ML IV ONE (20:52)
[2023-08-17] MEDS: heparin, porcine 5000 units/ml vial SQ SCH (20:55)
[2023-08-17] MEDS: normal saline 1000ml 1,000 ML IV SCH (20:56)
[2023-08-17] MEDS: insulin glargine (Lantus) pen - multi-dose SQ SCH (21:00)
[2023-08-17 22:30] VITALS: BP 107/41; PULSE 57; RESP 14; TEMP 97.1; O2SAT 98
[2023-08-17] MEDS: lactulose 20gm/30ml cup RC SCH (23:45)
[2023-08-18] VITALS (9 sets, daily range): BP systolic 107–135; BP diastolic 51–88; PULSE 64–88; RESP 10–16; TEMP 97.8–99.9; O2SAT 64–99
[2023-08-18 08:25] LABS: BASOPHILS # (AUTO) 0.1 X10'3 (0-0.2); BASOPHILS % (AUTO) 1.1 % (0-1); EOSINOPHILS # (AUTO) 0.1 X10'3 (0-0.9); EOSINOPHILS % (AUTO) 2.2 % (0-6); HEMATOCRIT 39.9 % (42.0-52.0); HEMOGLOBIN 13.9 g/dl (14.0-17.9); LYMPHOCYTES # (AUTO) 1.9 X10'3 (1.1-4.8); LYMPHOCYTES % (AUTO) 29.3 % (21-51); MEAN CORPUSCULAR HGB CONC 34.8 g/dL (33.0-36.5); MEAN CORPUSCULAR VOLUME 97.9 FL (78-98); MEAN PLATELET VOLUME 9.9 FL (7.4-10.4); MONOCYTES # (AUTO) 1.2 X10'3 (0-0.9); NEUTROPHILS # (AUTO) 3.1 X10'3 (1.8-7.7); NEUTROPHILS % (AUTO) 48.4 % (42-75); PLATELET COUNT 91 X10'3 (140-440); RED BLOOD COUNT 4.08 X10'6 (4.70-6.10); RED CELL DISTRIBUTION WIDTH 14.7 % (11.5-14.5); WHITE BLOOD COUNT 6.4 X10'3 (4.5-11.0)
[2023-08-18 08:36] LABS: INR 1.2 INR
[2023-08-18 08:54] LABS: ALANINE AMINOTRANSFERASE 63 U/L (12-78); ALBUMIN 1.7 G/DL (3.4-5.0); ALBUMIN/GLOBULIN RATIO 0.5 (1.1-1.5); ALKALINE PHOSPHATASE 117 IU/L (46-116); ANION GAP 7 (8-16); ASPARTATE AMINO TRANSFERASE 64 U/L (10-37); BILIRUBIN,TOTAL 2.7 MG/DL (0.1-1.0); BLOOD UREA NITROGEN 14 MG/DL (7-18); BUN/CREATININE RATIO 17.1 (10.0-20.0); CALCIUM 7.4 MG/DL (8.5-10.1); CHLORIDE 112 MMOL/L (99-107); CREATININE 0.82 MG/DL (0.60-1.10); GLUCOSE 220 MG/DL (70-104); MAGNESIUM 1.8 MG/DL (1.5-2.4); PHOSPHORUS 2.5 MG/DL (2.3-4.5); POTASSIUM 3.7 MMOL/L (3.5-5.1); SODIUM 142 MMOL/L (135-145); TOTAL PROTEIN 5.4 G/DL (6.4-8.2); eCRCL 87 ML/MIN; eGFR > 90 ML/MIN
[2023-08-18] MEDS: pantoprazole 40mg Tablet.DR PO SCH (09:03)
[2023-08-18] MEDS: insulin Lispro (HumaLOG) vial - multi-dose SQ SCH (09:13)
[2023-08-18 09:29] LABS: PLATELET ESTIMATE DECREASED; TOTAL CELLS COUNTED 100
[2023-08-18 09:30] LABS: ANISOCYTOSIS FEW
[2023-08-18 09:34] LABS: SMUDGE CELLS 1+
[2023-08-18] MEDS: CefTRIAXone/D5W-Rocephin 1gm 50 ML IV SCH (10:21)
[2023-08-18 10:55] LABS: HEMOGLOBIN A1C > 12.0 % (4.5-6.2)
[2023-08-18] MEDS: NEOMYCIN SULF LEFTEYE SCH (19:07)
[2023-08-18] MEDS: POLYMYXN B LEFTEYE SCH (19:07)
[2023-08-18] MEDS: [UNRECOGNIZED DRUG - OTHER] LEFTEYE SCH (19:07)
[2023-08-19 06:00] VITALS: BP 119/53; PULSE 64; RESP 16; TEMP 97.7; O2SAT 98
[2023-08-19 06:02] LABS: BASOPHILS # (AUTO) 0.1 X10'3 (0-0.2); EOSINOPHILS # (AUTO) 0.1 X10'3 (0-0.9); EOSINOPHILS % (AUTO) 1.9 % (0-6); HEMATOCRIT 40.6 % (42.0-52.0); HEMOGLOBIN 14.1 g/dl (14.0-17.9); LYMPHOCYTES # (AUTO) 2.4 X10'3 (1.1-4.8); LYMPHOCYTES % (AUTO) 34.2 % (21-51); MEAN CORPUSCULAR HEMOGLOBIN 34.2 PG (27.0-31.0); MEAN CORPUSCULAR HGB CONC 34.8 g/dL (33.0-36.5); MEAN CORPUSCULAR VOLUME 98.3 FL (78-98); MEAN PLATELET VOLUME 9.8 FL (7.4-10.4); MONOCYTES # (AUTO) 1.4 X10'3 (0-0.9); MONOCYTES % (AUTO) 20.7 % (2-12); NEUTROPHILS # (AUTO) 2.9 X10'3 (1.8-7.7); NEUTROPHILS % (AUTO) 42.2 % (42-75); PLATELET COUNT 88 X10'3 (140-440); RED BLOOD COUNT 4.13 X10'6 (4.70-6.10); RED CELL DISTRIBUTION WIDTH 14.6 % (11.5-14.5); WHITE BLOOD COUNT 6.9 X10'3 (4.5-11.0)
[2023-08-19 06:19] LABS: ALANINE AMINOTRANSFERASE 67 U/L (12-78); ALBUMIN 1.8 G/DL (3.4-5.0); ALBUMIN/GLOBULIN RATIO 0.5 (1.1-1.5); ALKALINE PHOSPHATASE 114 IU/L (46-116); ANION GAP 6 (8-16); ASPARTATE AMINO TRANSFERASE 73 U/L (10-37); BILIRUBIN,TOTAL 2.5 MG/DL (0.1-1.0); BLOOD UREA NITROGEN 13 MG/DL (7-18); BUN/CREATININE RATIO 16.5 (10.0-20.0); CALCIUM 7.6 MG/DL (8.5-10.1); CHLORIDE 111 MMOL/L (99-107); CREATININE 0.79 MG/DL (0.60-1.10); GLUCOSE 88 MG/DL (70-104); MAGNESIUM 1.6 MG/DL (1.5-2.4); PHOSPHORUS 2.7 MG/DL (2.3-4.5); POTASSIUM 3.5 MMOL/L (3.5-5.1); SODIUM 141 MMOL/L (135-145); TOTAL CARBON DIOXIDE 24.2 MMOL/L (24-32); TOTAL PROTEIN 5.5 G/DL (6.4-8.2); eCRCL 91 ML/MIN; eGFR > 90 ML/MIN
[2023-08-19 06:40] LABS: INR 1.2 INR; PROTHROMBIN TIME 12.5 SECONDS (9.0-12.0)
[2023-08-19 10:00] VITALS: BP 100/59; PULSE 71; RESP 16; TEMP 97.9; O2SAT 97
[2023-08-19] MEDS ORDERED: PROP10TA10 PO (12:23)
[2023-08-19] MEDS ORDERED: LACT10SO7 PO (12:23)
[2023-08-19] MEDS ORDERED: VIT1CAPS14 PO (12:29)
[2023-08-19] MEDS ORDERED: THIA50TA10 PO (12:29)
== END 2023-08-19 16:54 | disposition home health service (06) | DRG 52 ==
LOC: ER 04:56 → ED HOLD 14:55 → SUR 3N 22:30
PROVIDERS: ADMIT Family Medicine; ATTEND Family Medicine
DX: G92.8 Other toxic encephalopathy (principal); K72.90 Hepatic failure, unspecified without coma; K76.82 Hepatic encephalopathy; K76.6 Portal hypertension; K74.60 Unspecified cirrhosis of liver; S90.31XA Contusion of right foot, initial encounter; E11.9 Type 2 diabetes mellitus without complications; M79.672 Pain in left foot; B18.2 Chronic viral hepatitis C; F15.10 Other stimulant abuse, uncomplicated; X58.XXXA Exposure to other specified factors, initial encounter; Y93.89 Activity, other specified; Y92.89 Other specified places as the place of occurrence of the external cause; Y99.8 Other external cause status; Z79.4 Long term (current) use of insulin; Z79.899 Other long term (current) drug therapy
CPT/HCPCS: 36415; 70450; 71045; 73630; 80053; 80305; 80320; 81001; 82140; 82948; 83036; 83735; 84100; 85007; 85025; 85610; 87081; 92508; 92616; 97116; 97161; 97530; 99285; A4314; A4349; C1758; G0378; J0696; J1200; J1630; J1644; J1815; J3486; J7030

== ENCOUNTER 2023-09-06 02:32 | Inpatient (IN) | payer MEDICAID ==
[~2023-09-06] VITALS: Ht 167.6 cm; Wt 63.9 kg
[~2023-09-06 02:32] MED LIST changes: +INSU100V11 SQ; +PROP10TA10 PO; -SPIR25TA5 PO; +THIA50TA10 PO; +VIT1CAPS14 PO
[2023-09-06] MEDS: normal saline 1000ML IV soln IV ONE (03:05)
[2023-09-06 03:25] LABS: BASOPHILS # (AUTO) 0.1 X10'3 (0-0.2); BASOPHILS % (AUTO) 1.3 % (0-1); EOSINOPHILS # (AUTO) 0.3 X10'3 (0-0.9); EOSINOPHILS % (AUTO) 2.5 % (0-6); HEMATOCRIT 41.6 % (42.0-52.0); HEMOGLOBIN 14.6 g/dl (14.0-17.9); LYMPHOCYTES # (AUTO) 3.4 X10'3 (1.1-4.8); LYMPHOCYTES % (AUTO) 34.2 % (21-51); MEAN CORPUSCULAR HEMOGLOBIN 34.3 PG (27.0-31.0); MEAN CORPUSCULAR HGB CONC 35.1 g/dL (33.0-36.5); MEAN CORPUSCULAR VOLUME 97.6 FL (78-98); MEAN PLATELET VOLUME 10.1 FL (7.4-10.4); MONOCYTES # (AUTO) 1.6 X10'3 (0-0.9); MONOCYTES % (AUTO) 16.7 % (2-12); NEUTROPHILS # (AUTO) 4.5 X10'3 (1.8-7.7); NEUTROPHILS % (AUTO) 45.3 % (42-75); PLATELET COUNT 117 X10'3 (140-440); RED BLOOD COUNT 4.27 X10'6 (4.70-6.10); RED CELL DISTRIBUTION WIDTH 14.7 % (11.5-14.5); WHITE BLOOD COUNT 9.9 X10'3 (4.5-11.0)
[2023-09-06 03:34] LABS: LACTIC SEPSIS 1.6 MMOL/L (0.4-2.0)
[2023-09-06 03:41] LABS: ALANINE AMINOTRANSFERASE 101 U/L (12-78); ALBUMIN 1.8 G/DL (3.4-5.0); ALBUMIN/GLOBULIN RATIO 0.4 (1.1-1.5); ALKALINE PHOSPHATASE 141 IU/L (46-116); ANION GAP 9 (8-16); ASPARTATE AMINO TRANSFERASE 78 U/L (10-37); BILIRUBIN,TOTAL 2.6 MG/DL (0.1-1.0); BLOOD UREA NITROGEN 15 MG/DL (7-18); BUN/CREATININE RATIO 21.7 (10.0-20.0); CALCIUM 8.2 MG/DL (8.5-10.1); CHLORIDE 109 MMOL/L (99-107); CREATININE 0.69 MG/DL (0.60-1.10); GLUCOSE 97 MG/DL (70-104); PRO BRAIN NATRIURETIC PEPTIDE 44 PG/ML (0-125); SODIUM 142 MMOL/L (135-145); TOTAL CARBON DIOXIDE 24.2 MMOL/L (24-32); TOTAL PROTEIN 6.2 G/DL (6.4-8.2); eCRCL 103 ML/MIN; eGFR > 90 ML/MIN
[2023-09-06 04:01] LABS: BILIRUBIN,URINE NEGATIVE (Neg); CLARITY,URINE CLEAR (Clear); COLOR,URINE YELLOW (Yellow); GLUCOSE, URINE >=1000 mg/dl (Neg); KETONES,URINE NEGATIVE (Neg); LEUKOCYTE ESTERASE ,URINE NEGATIVE (Neg); NITRITES, URINE NEGATIVE (Neg); OCCULT BLOOD,URINE NEGATIVE (Neg); PH,URINE 6.5 (4.8-8.0); PROTEIN,URINE NEGATIVE (Neg)
[2023-09-06 04:02] LABS: UA COLLECTION TYPE FOLEY CATH
[2023-09-06 04:16] LABS: BACTERIA,URINE FEW /HPF (Neg); SQUAMOUS EPITHELIAL CELL,UR MODERATE /LPF (FEW)
[2023-09-06 04:17] LABS: MUCUS STRANDS FEW /LPF (Neg); TRANSITIONAL EPI CELLS,URINE FEW /HPF
[2023-09-06] MEDS: NORepinephrine 8mg/ 250ml NS 250 ML IV ONE (04:28)
[2023-09-06 04:31] LABS: PLATELET ESTIMATE DECREASED; TOTAL CELLS COUNTED 100
[2023-09-06] MEDS: normal saline 1000ml 1,000 ML IV ONE (04:33)
[2023-09-06] MEDS: CefTRIAXone/D5W-Rocephin 1gm 50 ML IV ONE (04:41)
[2023-09-06 04:42] LABS: MAGNESIUM 1.6 MG/DL (1.5-2.4)
[2023-09-06] MEDS: atropine 1 MG/1 ML vial IV ONE (04:43)
[2023-09-06] MEDS: potassium Cl 40MEQ/1/2NS 520ml 520 ML IV SCH (04:52)
[2023-09-06 06:14] LABS: URINE AMPHETAMINE SCREEN NEGATIVE (Neg); URINE BARBITUATE SCREEN NEGATIVE (Neg); URINE BENZODIAZEPINES SCREEN NEGATIVE (Neg); URINE CANNABINOID SCREEN POSITIVE (Neg); URINE COCAINE SCREEN NEGATIVE (Neg); URINE METHADONE SCREEN NEGATIVE (Neg); URINE OPIATE SCREEN NEGATIVE (Neg); URINE PHENCYCLIDINE SCREEN NEGATIVE (Neg)
[2023-09-06 06:35] LABS: THYROID STIMULATING HORMONE 1.75 ulU/ml (0.34-4.50)
[2023-09-06] MEDS: dexamethasone sod phosphate 10mg/ml inj IV STA (08:19)
[2023-09-06] MEDS: glycopyrrolate 0.2mg/ml inj IV ONE (08:19)
[2023-09-06] MEDS: normal saline 1000ML IV soln IVB ONE (08:34)
[2023-09-06] MEDS ORDERED: DEXTROSE 15 GM of carb/4 tabs (each vial/BOTTLE has 4 tablets) PO PRN (10:25)
[2023-09-06] MEDS: normal saline 1000ml 1,000 ML IV SCH (10:25)
[2023-09-06] MEDS ORDERED: ondansetron/PF 4mg/2ml inj IV PRN (10:25)
[2023-09-06] MEDS ORDERED: magnesium 2GM in 50ml NS 50 ML IV PRN (10:25)
[2023-09-06] MEDS ORDERED: magnesium 4gm in 100ml NS 100 ML IV PRN (10:25)
[2023-09-06] MEDS ORDERED: potassium Cl 20 mEq SR tablet PO PRN ×2 (10:25)
[2023-09-06] MEDS ORDERED: mag hydrox/Alum hydrox/simeth 30ml oral suspension PO PRN (10:25)
[2023-09-06] MEDS ORDERED: potassium Cl 40MEQ/1/2NS 520ml 520 ML IV PRN (10:25)
[2023-09-06] MEDS: MESSAGE TO PHARMACY PO ONE (10:25)
[2023-09-06] MEDS ORDERED: dextrose 50%-water 50ml dispensing syringe IV PRN ×2 (10:25)
[2023-09-06] MEDS ORDERED: glucagon, human recombinant 1mg kit SUBCUT PRN (10:25)
[2023-09-06 12:00] LABS: HEMOGLOBIN A1C > 12.0 % (4.5-6.2)
[2023-09-06] MEDS: lactulose 20gm/30ml cup PO SCH (14:00)
[2023-09-06 15:53] VITALS: BP 103/52; PULSE 72; RESP 18; TEMP 98.3; O2SAT 96
[2023-09-06 18:00] VITALS: BP 102/56; PULSE 53; RESP 15; TEMP 97.3; O2SAT 96
[2023-09-06] MEDS: INSULIN LISPRO 100 UNIT/ML INSULN.PEN MULTI-DOSE SQ SCH (19:24)
[2023-09-06] MEDS: docusate sod 100mg capsule PO SCH (19:34)
[2023-09-06 20:00] VITALS: RESP 18; O2SAT 27
[2023-09-06] MEDS: K and/or MAG REPLACEMENT MC SCH (20:00)
[2023-09-06 22:00] VITALS: BP 95/65; PULSE 62; RESP 18; TEMP 98.3; O2SAT 97
[2023-09-06] MEDS: insulin glargine (Lantus) pen - multi-dose SQ SCH (22:08)
[2023-09-07] VITALS (10 sets, daily range): BP systolic 90–102; BP diastolic 49–60; PULSE 53–62; RESP 14–20; TEMP 97.7–99; O2SAT 94–98
[2023-09-07] MEDS: acetaminophen 325mg tablet PO PRN (00:46)
[2023-09-07 06:55] LABS: BASOPHILS % (AUTO) 0.2 % (0-1); EOSINOPHILS % (AUTO) 0 % (0-6); HEMATOCRIT 35.6 % (42.0-52.0); HEMOGLOBIN 12.7 g/dl (14.0-17.9); LYMPHOCYTES # (AUTO) 1.8 X10'3 (1.1-4.8); LYMPHOCYTES % (AUTO) 17.7 % (21-51); MEAN CORPUSCULAR HEMOGLOBIN 34.7 PG (27.0-31.0); MEAN CORPUSCULAR HGB CONC 35.6 g/dL (33.0-36.5); MEAN CORPUSCULAR VOLUME 97.5 FL (78-98); MEAN PLATELET VOLUME 10.2 FL (7.4-10.4); MONOCYTES # (AUTO) 1.1 X10'3 (0-0.9); MONOCYTES % (AUTO) 10.8 % (2-12); NEUTROPHILS # (AUTO) 7.2 X10'3 (1.8-7.7); NEUTROPHILS % (AUTO) 71.3 % (42-75); PLATELET COUNT 103 X10'3 (140-440); RED BLOOD COUNT 3.65 X10'6 (4.70-6.10); RED CELL DISTRIBUTION WIDTH 14.5 % (11.5-14.5); WHITE BLOOD COUNT 10.1 X10'3 (4.5-11.0)
[2023-09-07 07:15] LABS: ALANINE AMINOTRANSFERASE 87 U/L (12-78); ALBUMIN 1.5 G/DL (3.4-5.0); ALBUMIN/GLOBULIN RATIO 0.4 (1.1-1.5); ALKALINE PHOSPHATASE 124 IU/L (46-116); ANION GAP 9 (8-16); ASPARTATE AMINO TRANSFERASE 70 U/L (10-37); BILIRUBIN,TOTAL 2.5 MG/DL (0.1-1.0); BLOOD UREA NITROGEN 15 MG/DL (7-18); BUN/CREATININE RATIO 17.2 (10.0-20.0); CALCIUM 7.1 MG/DL (8.5-10.1); CHLORIDE 101 MMOL/L (99-107); CREATININE 0.87 MG/DL (0.60-1.10); GLUCOSE 356 MG/DL (70-104); MAGNESIUM 1.5 MG/DL (1.5-2.4); POTASSIUM 4.3 MMOL/L (3.5-5.1); SODIUM 129 MMOL/L (135-145); TOTAL CARBON DIOXIDE 19.5 MMOL/L (24-32); TOTAL PROTEIN 5.2 G/DL (6.4-8.2); eCRCL 79 ML/MIN; eGFR 89 ML/MIN
[2023-09-07] MEDS: CefTRIAXone/D5W-Rocephin 1gm 50 ML IV SCH (08:22)
[2023-09-07] MEDS: nicotine 21mg patch - 24 hr TD SCH (08:31)
[2023-09-07] MEDS: ringers solution, lacted 1,000 ML IV ONE (20:57)
[2023-09-08] VITALS (7 sets, daily range): BP systolic 98–122; BP diastolic 48–66; PULSE 53–78; RESP 14–20; TEMP 97.8–99; O2SAT 95–99
[2023-09-08 08:24] LABS: BASOPHILS # (AUTO) 0.1 X10'3 (0-0.2); EOSINOPHILS # (AUTO) 0.2 X10'3 (0-0.9); EOSINOPHILS % (AUTO) 1.8 % (0-6); HEMATOCRIT 40.4 % (42.0-52.0); LYMPHOCYTES # (AUTO) 3.3 X10'3 (1.1-4.8); LYMPHOCYTES % (AUTO) 37.1 % (21-51); MEAN CORPUSCULAR HEMOGLOBIN 34.1 PG (27.0-31.0); MEAN CORPUSCULAR HGB CONC 34.7 g/dL (33.0-36.5); MEAN CORPUSCULAR VOLUME 98.2 FL (78-98); MEAN PLATELET VOLUME 10.3 FL (7.4-10.4); MONOCYTES # (AUTO) 1.3 X10'3 (0-0.9); MONOCYTES % (AUTO) 14.4 % (2-12); NEUTROPHILS # (AUTO) 4.1 X10'3 (1.8-7.7); NEUTROPHILS % (AUTO) 45.7 % (42-75); PLATELET COUNT 88 X10'3 (140-440); RED BLOOD COUNT 4.12 X10'6 (4.70-6.10); RED CELL DISTRIBUTION WIDTH 14.8 % (11.5-14.5); WHITE BLOOD COUNT 8.9 X10'3 (4.5-11.0)
[2023-09-08 08:42] LABS: ALANINE AMINOTRANSFERASE 109 U/L (12-78); ALBUMIN 1.7 G/DL (3.4-5.0); ALBUMIN/GLOBULIN RATIO 0.4 (1.1-1.5); ALKALINE PHOSPHATASE 136 IU/L (46-116); ANION GAP 4 (8-16); ASPARTATE AMINO TRANSFERASE 95 U/L (10-37); BILIRUBIN,TOTAL 2.1 MG/DL (0.1-1.0); BLOOD UREA NITROGEN 15 MG/DL (7-18); BUN/CREATININE RATIO 20.5 (10.0-20.0); CALCIUM 7.5 MG/DL (8.5-10.1); CHLORIDE 104 MMOL/L (99-107); CREATININE 0.73 MG/DL (0.60-1.10); GLUCOSE 214 MG/DL (70-104); MAGNESIUM 1.6 MG/DL (1.5-2.4); SODIUM 134 MMOL/L (135-145); TOTAL CARBON DIOXIDE 25.9 MMOL/L (24-32); TOTAL PROTEIN 5.7 G/DL (6.4-8.2); eCRCL 95 ML/MIN; eGFR > 90 ML/MIN
[2023-09-09] VITALS (10 sets, daily range): BP systolic 92–173; BP diastolic 51–71; PULSE 58–86; RESP 12–26; TEMP 97.7–98.8; O2SAT 91–100
[2023-09-09 08:37] LABS: BASOPHILS # (AUTO) 0.1 X10'3 (0-0.2); BASOPHILS % (AUTO) 0.9 % (0-1); EOSINOPHILS # (AUTO) 0.4 X10'3 (0-0.9); EOSINOPHILS % (AUTO) 4.8 % (0-6); HEMATOCRIT 40.9 % (42.0-52.0); HEMOGLOBIN 14.3 g/dl (14.0-17.9); LYMPHOCYTES # (AUTO) 2.6 X10'3 (1.1-4.8); LYMPHOCYTES % (AUTO) 31.6 % (21-51); MEAN CORPUSCULAR HEMOGLOBIN 34.4 PG (27.0-31.0); MEAN CORPUSCULAR HGB CONC 34.8 g/dL (33.0-36.5); MEAN CORPUSCULAR VOLUME 98.8 FL (78-98); MEAN PLATELET VOLUME 10.5 FL (7.4-10.4); MONOCYTES # (AUTO) 1.2 X10'3 (0-0.9); MONOCYTES % (AUTO) 13.9 % (2-12); NEUTROPHILS # (AUTO) 4.1 X10'3 (1.8-7.7); NEUTROPHILS % (AUTO) 48.8 % (42-75); PLATELET COUNT 98 X10'3 (140-440); RED BLOOD COUNT 4.14 X10'6 (4.70-6.10); RED CELL DISTRIBUTION WIDTH 15.1 % (11.5-14.5); WHITE BLOOD COUNT 8.3 X10'3 (4.5-11.0)
[2023-09-09 09:07] LABS: ALANINE AMINOTRANSFERASE 145 U/L (12-78); ALBUMIN 1.7 G/DL (3.4-5.0); ALBUMIN/GLOBULIN RATIO 0.4 (1.1-1.5); ALKALINE PHOSPHATASE 146 IU/L (46-116); ANION GAP 6 (8-16); ASPARTATE AMINO TRANSFERASE 128 U/L (10-37); BILIRUBIN,TOTAL 2.3 MG/DL (0.1-1.0); BLOOD UREA NITROGEN 15 MG/DL (7-18); BUN/CREATININE RATIO 18.8 (10.0-20.0); CALCIUM 7.7 MG/DL (8.5-10.1); CHLORIDE 105 MMOL/L (99-107); GLUCOSE 191 MG/DL (70-104); MAGNESIUM 1.6 MG/DL (1.5-2.4); SODIUM 136 MMOL/L (135-145); TOTAL CARBON DIOXIDE 24.7 MMOL/L (24-32); TOTAL PROTEIN 6.1 G/DL (6.4-8.2); eCRCL 86 ML/MIN; eGFR > 90 ML/MIN
[2023-09-09 09:23] LABS: LACTIC SEPSIS 2.2 MMOL/L (0.4-2.0)
[2023-09-09] MEDS: DEXTROSE 15 GM of carb/4 tabs (each vial/BOTTLE has 4 tablets) PO PRN (17:27)
[2023-09-09] MEDS: lactulose 20gm/30ml cup PO SCH (20:22)
[2023-09-10] VITALS (8 sets, daily range): BP systolic 88–132; BP diastolic 54–68; PULSE 62–75; RESP 15–22; TEMP 97.2–98.8; O2SAT 63–100
[2023-09-10 06:02] LABS: ALANINE AMINOTRANSFERASE 161 U/L (12-78); ALBUMIN 1.7 G/DL (3.4-5.0); ALBUMIN/GLOBULIN RATIO 0.4 (1.1-1.5); ALKALINE PHOSPHATASE 142 IU/L (46-116); ANION GAP 7 (8-16); ASPARTATE AMINO TRANSFERASE 158 U/L (10-37); BASOPHILS # (AUTO) 0.1 X10'3 (0-0.2); BASOPHILS % (AUTO) 0.9 % (0-1); BILIRUBIN,TOTAL 1.8 MG/DL (0.1-1.0); BLOOD UREA NITROGEN 17 MG/DL (7-18); BUN/CREATININE RATIO 22.4 (10.0-20.0); CHLORIDE 104 MMOL/L (99-107); CREATININE 0.76 MG/DL (0.60-1.10); EOSINOPHILS # (AUTO) 0.4 X10'3 (0-0.9); EOSINOPHILS % (AUTO) 5.5 % (0-6); GLUCOSE 295 MG/DL (70-104); HEMATOCRIT 39.8 % (42.0-52.0); HEMOGLOBIN 13.8 g/dl (14.0-17.9); LYMPHOCYTES # (AUTO) 2.6 X10'3 (1.1-4.8); LYMPHOCYTES % (AUTO) 34.1 % (21-51); MAGNESIUM 1.8 MG/DL (1.5-2.4); MEAN CORPUSCULAR HEMOGLOBIN 34.3 PG (27.0-31.0); MEAN CORPUSCULAR HGB CONC 34.6 g/dL (33.0-36.5); MEAN CORPUSCULAR VOLUME 99.1 FL (78-98); MEAN PLATELET VOLUME 10.8 FL (7.4-10.4); MONOCYTES # (AUTO) 1.2 X10'3 (0-0.9); MONOCYTES % (AUTO) 15.6 % (2-12); NEUTROPHILS # (AUTO) 3.4 X10'3 (1.8-7.7); NEUTROPHILS % (AUTO) 43.9 % (42-75); PLATELET COUNT 100 X10'3 (140-440); POTASSIUM 4.1 MMOL/L (3.5-5.1); RED BLOOD COUNT 4.02 X10'6 (4.70-6.10); RED CELL DISTRIBUTION WIDTH 14.6 % (11.5-14.5); SODIUM 135 MMOL/L (135-145); TOTAL CARBON DIOXIDE 23.7 MMOL/L (24-32); TOTAL PROTEIN 5.8 G/DL (6.4-8.2); WHITE BLOOD COUNT 7.7 X10'3 (4.5-11.0); eCRCL 91 ML/MIN; eGFR > 90 ML/MIN
[2023-09-10 06:42] LABS: PLATELET ESTIMATE DECREASED; TOTAL CELLS COUNTED 100
[2023-09-11] VITALS (8 sets, daily range): BP systolic 98–118; BP diastolic 51–69; PULSE 64–74; RESP 15–20; TEMP 97.4–98.5; O2SAT 63–99
[2023-09-11 05:35] LABS: BASOPHILS # (AUTO) 0.1 X10'3 (0-0.2); BASOPHILS % (AUTO) 1.1 % (0-1); EOSINOPHILS # (AUTO) 0.3 X10'3 (0-0.9); EOSINOPHILS % (AUTO) 4.8 % (0-6); HEMATOCRIT 38.2 % (42.0-52.0); HEMOGLOBIN 13.3 g/dl (14.0-17.9); LYMPHOCYTES # (AUTO) 2.7 X10'3 (1.1-4.8); LYMPHOCYTES % (AUTO) 36.9 % (21-51); MEAN CORPUSCULAR HEMOGLOBIN 34.2 PG (27.0-31.0); MEAN CORPUSCULAR HGB CONC 34.7 g/dL (33.0-36.5); MEAN CORPUSCULAR VOLUME 98.7 FL (78-98); MONOCYTES % (AUTO) 13.5 % (2-12); NEUTROPHILS # (AUTO) 3.2 X10'3 (1.8-7.7); NEUTROPHILS % (AUTO) 43.7 % (42-75); PLATELET COUNT 107 X10'3 (140-440); RED BLOOD COUNT 3.88 X10'6 (4.70-6.10); RED CELL DISTRIBUTION WIDTH 14.7 % (11.5-14.5); WHITE BLOOD COUNT 7.3 X10'3 (4.5-11.0)
[2023-09-11 06:00] LABS: ALANINE AMINOTRANSFERASE 153 U/L (12-78); ALBUMIN 1.6 G/DL (3.4-5.0); ALBUMIN/GLOBULIN RATIO 0.4 (1.1-1.5); ALKALINE PHOSPHATASE 140 IU/L (46-116); ANION GAP 7 (8-16); ASPARTATE AMINO TRANSFERASE 137 U/L (10-37); BILIRUBIN,TOTAL 1.4 MG/DL (0.1-1.0); BLOOD UREA NITROGEN 18 MG/DL (7-18); BUN/CREATININE RATIO 24.3 (10.0-20.0); CALCIUM 8.1 MG/DL (8.5-10.1); CHLORIDE 105 MMOL/L (99-107); CREATININE 0.74 MG/DL (0.60-1.10); GLUCOSE 328 MG/DL (70-104); MAGNESIUM 1.5 MG/DL (1.5-2.4); POTASSIUM 4.3 MMOL/L (3.5-5.1); SODIUM 136 MMOL/L (135-145); TOTAL CARBON DIOXIDE 23.7 MMOL/L (24-32); TOTAL PROTEIN 5.6 G/DL (6.4-8.2); eCRCL 93 ML/MIN; eGFR > 90 ML/MIN
[2023-09-12 02:00] VITALS: BP 109/73; PULSE 64; RESP 20; TEMP 98; O2SAT 97
[2023-09-12 08:49] VITALS: BP 99/56; PULSE 57; RESP 17; TEMP 98; O2SAT 99
[2023-09-12 09:44] LABS: BASOPHILS # (AUTO) 0.1 X10'3 (0-0.2); BASOPHILS % (AUTO) 0.8 % (0-1); EOSINOPHILS # (AUTO) 0.3 X10'3 (0-0.9); EOSINOPHILS % (AUTO) 3.9 % (0-6); HEMATOCRIT 43.2 % (42.0-52.0); HEMOGLOBIN 14.9 g/dl (14.0-17.9); LYMPHOCYTES # (AUTO) 2.3 X10'3 (1.1-4.8); LYMPHOCYTES % (AUTO) 29.8 % (21-51); MEAN CORPUSCULAR HEMOGLOBIN 34.2 PG (27.0-31.0); MEAN CORPUSCULAR HGB CONC 34.5 g/dL (33.0-36.5); MEAN CORPUSCULAR VOLUME 99.3 FL (78-98); MEAN PLATELET VOLUME 9.9 FL (7.4-10.4); MONOCYTES # (AUTO) 1.3 X10'3 (0-0.9); MONOCYTES % (AUTO) 16.8 % (2-12); NEUTROPHILS # (AUTO) 3.7 X10'3 (1.8-7.7); NEUTROPHILS % (AUTO) 48.7 % (42-75); PLATELET COUNT 111 X10'3 (140-440); RED BLOOD COUNT 4.35 X10'6 (4.70-6.10); RED CELL DISTRIBUTION WIDTH 14.7 % (11.5-14.5); WHITE BLOOD COUNT 7.6 X10'3 (4.5-11.0)
[2023-09-12 10:04] LABS: PLATELET ESTIMATE NORMAL; TOTAL CELLS COUNTED 100
[2023-09-12] MEDS ORDERED: NOVLG SQ (10:22)
[2023-09-12] MEDS ORDERED: NEED-136 SUBCUT (10:22)
[2023-09-12] MEDS ORDERED: LACT10SO7 PO (10:22)
[2023-09-12] MEDS ORDERED: INSU100I31 SQ (10:22)
[2023-09-12 11:00] VITALS: BP 105/63; PULSE 68; RESP 18; TEMP 97.6; O2SAT 99
[2023-09-12 11:26] LABS: ALANINE AMINOTRANSFERASE 174 U/L (12-78); ALBUMIN 1.7 G/DL (3.4-5.0); ALBUMIN/GLOBULIN RATIO 0.4 (1.1-1.5); ALKALINE PHOSPHATASE 144 IU/L (46-116); ANION GAP 8 (8-16); ASPARTATE AMINO TRANSFERASE 143 U/L (10-37); BILIRUBIN,TOTAL 1.9 MG/DL (0.1-1.0); BLOOD UREA NITROGEN 16 MG/DL (7-18); BUN/CREATININE RATIO 20.8 (10.0-20.0); CALCIUM 7.7 MG/DL (8.5-10.1); CHLORIDE 103 MMOL/L (99-107); CREATININE 0.77 MG/DL (0.60-1.10); GLUCOSE 313 MG/DL (70-104); POTASSIUM 4.3 MMOL/L (3.5-5.1); SODIUM 136 MMOL/L (135-145); TOTAL CARBON DIOXIDE 25.1 MMOL/L (24-32); TOTAL PROTEIN 5.8 G/DL (6.4-8.2); eCRCL 90 ML/MIN; eGFR > 90 ML/MIN
== END 2023-09-12 16:28 | disposition home or self-care (01) | DRG 720 ==
LOC: ER 02:33 → ED HOLD 10:33 → PCU 3S 14:36
PROVIDERS: ADMIT Family Medicine; ATTEND Family Medicine
DX: A41.9 Sepsis, unspecified organism (principal); G93.41 Metabolic encephalopathy; E11.649 Type 2 diabetes mellitus with hypoglycemia without coma; E87.1 Hypo-osmolality and hyponatremia; N39.0 Urinary tract infection, site not specified; E11.65 Type 2 diabetes mellitus with hyperglycemia; E87.6 Hypokalemia; Z79.4 Long term (current) use of insulin; Z72.0 Tobacco use; Z79.899 Other long term (current) drug therapy
CPT/HCPCS: 36415; 70450; 71045; 80053; 80305; 81001; 82140; 82948; 83036; 83605; 83735; 83880; 84132; 84145; 84443; 85007; 85025; 87040; 87077; 87081; 87088; 87186; 87811; 93005; 96361; 96365; 96375; 97116; 97161; 97530; 99285; A5200; A6213; A6250; C1758; G0378; J0461; J0696; J1100; J1815; J3480; J3490; J7030; J7040; J7120; J7121

== ENCOUNTER 2023-09-24 19:08 | Inpatient (IN) | payer MEDICAID ==
[~2023-09-24] VITALS: Ht 167.6 cm; Wt 68.0 kg
[~2023-09-24 19:08] MED LIST changes: +INSU100I31 SQ; -INSU100V11 SQ; -INSU100V56 SQ; +NEED-136 SUBCUT; +NOVLG SQ; -PROP10TA10 PO
[2023-09-24] MEDS: normal saline 1000ml 1,000 ML IV ONE (20:07)
[2023-09-24 20:21] LABS: BASOPHILS % (AUTO) 0.6 % (0-1); EOSINOPHILS # (AUTO) 0.3 X10'3 (0-0.9); HEMATOCRIT 44.7 % (42.0-52.0); HEMOGLOBIN 15.6 g/dl (14.0-17.9); LYMPHOCYTES # (AUTO) 2.8 X10'3 (1.1-4.8); MEAN CORPUSCULAR HEMOGLOBIN 34.6 PG (27.0-31.0); MEAN CORPUSCULAR HGB CONC 34.8 g/dL (33.0-36.5); MEAN CORPUSCULAR VOLUME 99.6 FL (78-98); MEAN PLATELET VOLUME 10.1 FL (7.4-10.4); MONOCYTES # (AUTO) 1.1 X10'3 (0-0.9); MONOCYTES % (AUTO) 14.8 % (2-12); NEUTROPHILS # (AUTO) 3.3 X10'3 (1.8-7.7); NEUTROPHILS % (AUTO) 43.6 % (42-75); PLATELET COUNT 119 X10'3 (140-440); RED BLOOD COUNT 4.49 X10'6 (4.70-6.10); RED CELL DISTRIBUTION WIDTH 14.1 % (11.5-14.5); WHITE BLOOD COUNT 7.5 X10'3 (4.5-11.0)
[2023-09-24 20:24] LABS: ACETONE NEGATIVE (NEGATIVE)
[2023-09-24 20:30] LABS: ALANINE AMINOTRANSFERASE 102 U/L (12-78); ALBUMIN 2.3 G/DL (3.4-5.0); ALBUMIN/GLOBULIN RATIO 0.5 (1.1-1.5); ALKALINE PHOSPHATASE 220 IU/L (46-116); ANION GAP 7 (8-16); ASPARTATE AMINO TRANSFERASE 58 U/L (10-37); BLOOD UREA NITROGEN 17 MG/DL (7-18); BUN/CREATININE RATIO 16.5 (10.0-20.0); CALCIUM 8.7 MG/DL (8.5-10.1); CHLORIDE 98 MMOL/L (99-107); CREATININE 1.03 MG/DL (0.60-1.10); PHOSPHORUS 3.4 MG/DL (2.3-4.5); POTASSIUM 4.7 MMOL/L (3.5-5.1); SODIUM 129 MMOL/L (135-145); TOTAL CARBON DIOXIDE 24.5 MMOL/L (24-32); TOTAL PROTEIN 7.2 G/DL (6.4-8.2); eCRCL 67 ML/MIN; eGFR 73 ML/MIN
[2023-09-24 20:57] LABS: GLUCOSE 727 MG/DL (70-104)
[2023-09-24 21:00] LABS: BILIRUBIN,URINE NEGATIVE (Neg); CLARITY,URINE CLEAR (Clear); COLOR,URINE STRAW (Yellow); GLUCOSE, URINE >=1000 mg/dl (Neg); KETONES,URINE NEGATIVE (Neg); LEUKOCYTE ESTERASE ,URINE NEGATIVE (Neg); NITRITES, URINE NEGATIVE (Neg); OCCULT BLOOD,URINE NEGATIVE (Neg); PROTEIN,URINE NEGATIVE (Neg); UROBILINOGEN,URINE 0.2 E.U/dL (0.2-1.0)
[2023-09-24 21:07] LABS: UA COLLECTION TYPE CLN CATCH MIDSTREAM
[2023-09-24 21:08] LABS: BACTERIA,URINE NONE SEEN /HPF (Neg); RBC,URINE 0-2 /HPF (0-2); WBC,URINE 0-4 /HPF (0-4)
[2023-09-24 21:09] LABS: MUCUS STRANDS NONE SEEN /LPF (Neg); SQUAMOUS EPITHELIAL CELL,UR NONE SEEN /LPF (FEW)
[2023-09-24] MEDS: insulin regular, human 10 units/0.1 ml syringe IV ONE (21:26)
[2023-09-24] MEDS ORDERED: potassium Cl 20 mEq SR tablet PO PRN ×2 (21:45)
[2023-09-24] MEDS ORDERED: magnesium 2GM in 50ml NS 50 ML IV PRN (21:45)
[2023-09-24] MEDS ORDERED: ondansetron/PF 4mg/2ml inj IV PRN (21:45)
[2023-09-24] MEDS ORDERED: potassium Cl 40MEQ/1/2NS 520ml 520 ML IV PRN (21:45)
[2023-09-24] MEDS ORDERED: magnesium Cl slow-release 64mg tablet PO PRN (21:45)
[2023-09-24] MEDS ORDERED: magnesium 4gm in 100ml NS 100 ML IV PRN (21:45)
[2023-09-24] MEDS ORDERED: acetaminophen 325mg tablet PO PRN (21:45)
[2023-09-24] MEDS: normal saline 1000ml 1,000 ML IV SCH (22:16)
[2023-09-24 22:27] LABS: INR 1.1 INR; PROTHROMBIN TIME 11.2 SECONDS (9.0-12.0)
[2023-09-24] MEDS ORDERED: normal saline 1000ml 1,000 ML IV SCH (23:50)
[2023-09-25] VITALS (9 sets, daily range): BP systolic 92–120; BP diastolic 49–62; PULSE 52–68; RESP 16–19; TEMP 97–98.4; O2SAT 94–99
[2023-09-25 06:42] LABS: BASOPHILS # (AUTO) 0.1 X10'3 (0-0.2); BASOPHILS % (AUTO) 0.9 % (0-1); EOSINOPHILS # (AUTO) 0.4 X10'3 (0-0.9); EOSINOPHILS % (AUTO) 5.8 % (0-6); HEMATOCRIT 37.9 % (42.0-52.0); HEMOGLOBIN 13.3 g/dl (14.0-17.9); LYMPHOCYTES # (AUTO) 2.8 X10'3 (1.1-4.8); LYMPHOCYTES % (AUTO) 39.9 % (21-51); MEAN CORPUSCULAR HEMOGLOBIN 34.5 PG (27.0-31.0); MEAN CORPUSCULAR HGB CONC 35.2 g/dL (33.0-36.5); MEAN CORPUSCULAR VOLUME 98.1 FL (78-98); MEAN PLATELET VOLUME 9.5 FL (7.4-10.4); MONOCYTES % (AUTO) 13.7 % (2-12); NEUTROPHILS # (AUTO) 2.8 X10'3 (1.8-7.7); NEUTROPHILS % (AUTO) 39.7 % (42-75); PLATELET COUNT 109 X10'3 (140-440); RED BLOOD COUNT 3.86 X10'6 (4.70-6.10); RED CELL DISTRIBUTION WIDTH 14.3 % (11.5-14.5)
[2023-09-25 06:55] LABS: ALBUMIN 1.7 G/DL (3.4-5.0); ANION GAP 4 (8-16); BLOOD UREA NITROGEN 14 MG/DL (7-18); CALCIUM 7.2 MG/DL (8.5-10.1); CHLORIDE 104 MMOL/L (99-107); GLUCOSE 335 MG/DL (70-104); MAGNESIUM 1.5 MG/DL (1.5-2.4); POTASSIUM 3.9 MMOL/L (3.5-5.1); SODIUM 132 MMOL/L (135-145); TOTAL CARBON DIOXIDE 23.7 MMOL/L (24-32); eCRCL 99 ML/MIN; eGFR > 90 ML/MIN
[2023-09-25 07:15] LABS: HEMOGLOBIN A1C > 12.0 % (4.5-6.2)
[2023-09-25] MEDS: K and/or MAG REPLACEMENT MC SCH (08:48)
[2023-09-25] MEDS ORDERED: dextrose 50%-water 50ml dispensing syringe IV PRN ×2 (15:30)
[2023-09-25] MEDS ORDERED: DEXTROSE 15 GM of carb/4 tabs (each vial/BOTTLE has 4 tablets) PO PRN ×2 (15:30)
[2023-09-25] MEDS ORDERED: glucagon, human recombinant 1mg kit SUBCUT PRN (15:30)
[2023-09-25] MEDS: insulin Lispro (HumaLOG) vial - multi-dose SQ SCH (17:00)
[2023-09-25] MEDS: lactulose 20gm/30ml cup PO SCH (20:46)
[2023-09-25] MEDS: insulin glargine (Lantus) pen - multi-dose SQ SCH (20:59)
[2023-09-26 02:00] VITALS: BP 92/48; PULSE 56; RESP 18; TEMP 97.5; O2SAT 94
[2023-09-26 06:00] VITALS: BP 106/60; PULSE 100; RESP 14; TEMP 98.2; O2SAT 97
[2023-09-26] MEDS ORDERED: Insulin ASPART (NovoLOG) pen SQ SCH (07:00)
[2023-09-26 07:05] LABS: ALBUMIN 1.8 G/DL (3.4-5.0); ANION GAP 9 (8-16); BLOOD UREA NITROGEN 14 MG/DL (7-18); BUN/CREATININE RATIO 20.6 (10.0-20.0); CALCIUM 8.2 MG/DL (8.5-10.1); CHLORIDE 109 MMOL/L (99-107); CREATININE 0.68 MG/DL (0.60-1.10); GLUCOSE 203 MG/DL (70-104); MAGNESIUM 1.8 MG/DL (1.5-2.4); POTASSIUM 3.6 MMOL/L (3.5-5.1); SODIUM 140 MMOL/L (135-145); TOTAL CARBON DIOXIDE 22.1 MMOL/L (24-32); eCRCL 102 ML/MIN; eGFR > 90 ML/MIN
[2023-09-26 07:14] LABS: BASOPHILS # (AUTO) 0.1 X10'3 (0-0.2); BASOPHILS % (AUTO) 0.6 % (0-1); EOSINOPHILS # (AUTO) 0.3 X10'3 (0-0.9); EOSINOPHILS % (AUTO) 3.8 % (0-6); HEMATOCRIT 39.3 % (42.0-52.0); HEMOGLOBIN 13.7 g/dl (14.0-17.9); LYMPHOCYTES # (AUTO) 2.7 X10'3 (1.1-4.8); LYMPHOCYTES % (AUTO) 30.4 % (21-51); MEAN CORPUSCULAR HEMOGLOBIN 34.2 PG (27.0-31.0); MEAN CORPUSCULAR HGB CONC 34.9 g/dL (33.0-36.5); MEAN CORPUSCULAR VOLUME 98.1 FL (78-98); MEAN PLATELET VOLUME 10.6 FL (7.4-10.4); MONOCYTES # (AUTO) 1.1 X10'3 (0-0.9); MONOCYTES % (AUTO) 12.3 % (2-12); NEUTROPHILS # (AUTO) 4.6 X10'3 (1.8-7.7); NEUTROPHILS % (AUTO) 52.9 % (42-75); PLATELET COUNT 114 X10'3 (140-440); RED BLOOD COUNT 4.01 X10'6 (4.70-6.10); RED CELL DISTRIBUTION WIDTH 14.1 % (11.5-14.5); WHITE BLOOD COUNT 8.7 X10'3 (4.5-11.0)
[2023-09-26] MEDS ORDERED: PYRIDOXINE HCL PO SCH (08:00)
[2023-09-26] MEDS ORDERED: [UNRECOGNIZED DRUG - OTHER] PO SCH (08:00)
[2023-09-26] MEDS ORDERED: VIT B12 PO SCH (08:00)
[2023-09-26] MEDS: thiamine 100mg tablet PO SCH (08:18)
[2023-09-26] MEDS: pantoprazole 40mg Tablet.DR PO SCH (08:18)
[2023-09-26 10:00] VITALS: BP 125/62; PULSE 69; RESP 18; TEMP 98.5; O2SAT 98
[2023-09-26] MEDS ORDERED: INSU100I31 SQ (15:48)
[2023-09-26] MEDS ORDERED: NOVLG SQ (15:48)
[2023-09-26] MEDS ORDERED: LACT10SO7 PO (16:11)
[2023-09-26] MEDS ORDERED: PANT-47 PO (16:11)
== END 2023-09-26 17:30 | disposition home or self-care (01) | DRG 420 ==
LOC: ER 19:08 → ED HOLD 21:54 → PCU 3S 09-25 00:10
PROVIDERS: ADMIT Internal Medicine; ATTEND Internal Medicine
DX: E11.65 Type 2 diabetes mellitus with hyperglycemia (principal); K72.90 Hepatic failure, unspecified without coma; K74.60 Unspecified cirrhosis of liver; R53.1 Weakness; K21.9 Gastro-esophageal reflux disease without esophagitis; F17.210 Nicotine dependence, cigarettes, uncomplicated; B19.20 Unspecified viral hepatitis C without hepatic coma; Z79.4 Long term (current) use of insulin
CPT/HCPCS: 36415; 80048; 80053; 81001; 82009; 82947; 82948; 83036; 83735; 84100; 85025; 85610; 87081; 97161; 97530; 99285; G0378; J1815; J7030

== ENCOUNTER 2023-10-13 08:47 | Inpatient (IN) | payer MEDICAID ==
[~2023-10-13] VITALS: Ht 165.1 cm; Wt 63.8 kg
[~2023-10-13 08:47] MED LIST changes: -NEOM3.5O31 LEFTEYE
[2023-10-13 09:50] LABS: BILIRUBIN,URINE NEGATIVE (Neg); CLARITY,URINE CLEAR (Clear); COLOR,URINE YELLOW (Yellow); GLUCOSE, URINE >=1000 mg/dl (Neg); KETONES,URINE NEGATIVE (Neg); LEUKOCYTE ESTERASE ,URINE NEGATIVE (Neg); NITRITES, URINE NEGATIVE (Neg); OCCULT BLOOD,URINE NEGATIVE (Neg); PROTEIN,URINE NEGATIVE (Neg)
[2023-10-13 09:51] LABS: UA COLLECTION TYPE STRAIGHT CATH
[2023-10-13 09:59] LABS: SQUAMOUS EPITHELIAL CELL,UR FEW /LPF (FEW)
[2023-10-13 10:00] LABS: BACTERIA,URINE FEW /HPF (Neg); RBC,URINE 0-2 /HPF (0-2); WBC,URINE 0-4 /HPF (0-4)
[2023-10-13 10:01] LABS: URINE AMPHETAMINE SCREEN NEGATIVE (Neg); URINE BARBITUATE SCREEN NEGATIVE (Neg); URINE BENZODIAZEPINES SCREEN NEGATIVE (Neg); URINE CANNABINOID SCREEN POSITIVE (Neg); URINE COCAINE SCREEN NEGATIVE (Neg); URINE METHADONE SCREEN NEGATIVE (Neg); URINE OPIATE SCREEN NEGATIVE (Neg); URINE PHENCYCLIDINE SCREEN NEGATIVE (Neg)
[2023-10-13] MEDS: normal saline 1000ml 1,000 ML IV ONE ×2 (10:17→11:35)
[2023-10-13 10:59] LABS: BASOPHILS # (AUTO) 0.1 X10'3 (0-0.2); EOSINOPHILS # (AUTO) 0.2 X10'3 (0-0.9); EOSINOPHILS % (AUTO) 2.3 % (0-6); HEMATOCRIT 47.5 % (42.0-52.0); HEMOGLOBIN 16.3 g/dl (14.0-17.9); LYMPHOCYTES # (AUTO) 2.3 X10'3 (1.1-4.8); LYMPHOCYTES % (AUTO) 27.5 % (21-51); MEAN CORPUSCULAR HEMOGLOBIN 33.9 PG (27.0-31.0); MEAN CORPUSCULAR HGB CONC 34.3 g/dL (33.0-36.5); MEAN CORPUSCULAR VOLUME 98.9 FL (78-98); MEAN PLATELET VOLUME 10.6 FL (7.4-10.4); MONOCYTES # (AUTO) 1.2 X10'3 (0-0.9); MONOCYTES % (AUTO) 14.4 % (2-12); NEUTROPHILS # (AUTO) 4.6 X10'3 (1.8-7.7); NEUTROPHILS % (AUTO) 54.8 % (42-75); PLATELET COUNT 111 X10'3 (140-440); RED CELL DISTRIBUTION WIDTH 14.6 % (11.5-14.5); WHITE BLOOD COUNT 8.5 X10'3 (4.5-11.0)
[2023-10-13 11:06] LABS: ALANINE AMINOTRANSFERASE 72 U/L (12-78); ALBUMIN 2.7 G/DL (3.4-5.0); ALBUMIN/GLOBULIN RATIO 0.5 (1.1-1.5); ALKALINE PHOSPHATASE 205 IU/L (46-116); ANION GAP 11 (8-16); ASPARTATE AMINO TRANSFERASE 52 U/L (10-37); BILIRUBIN,TOTAL 2.5 MG/DL (0.1-1.0); BLOOD UREA NITROGEN 15 MG/DL (7-18); BUN/CREATININE RATIO 19.7 (10.0-20.0); CALCIUM 9.2 MG/DL (8.5-10.1); CHLORIDE 107 MMOL/L (99-107); CREATININE 0.76 MG/DL (0.60-1.10); GLUCOSE 341 MG/DL (70-104); POTASSIUM 4.6 MMOL/L (3.5-5.1); SODIUM 140 MMOL/L (135-145); TOTAL CARBON DIOXIDE 22.3 MMOL/L (24-32); eCRCL 88 ML/MIN; eGFR > 90 ML/MIN
[2023-10-13 11:09] LABS: ETHANOL < 10 MG/DL (<10)
[2023-10-13] MEDS: CefTRIAXone/D5W-Rocephin 1gm 50 ML IV ONE (11:35)
[2023-10-13] MEDS ORDERED: ondansetron/PF 4mg/2ml inj IV PRN (11:55)
[2023-10-13] MEDS ORDERED: magnesium hydroxide 30ml (MOM) UD suspension PO PRN (11:55)
[2023-10-13] MEDS ORDERED: magnesium Cl slow-release 64mg tablet PO PRN ×2 (11:55)
[2023-10-13] MEDS ORDERED: haloperidol 5mg tablet PO PRN (11:55)
[2023-10-13] MEDS ORDERED: glucagon, human recombinant 1mg kit SUBCUT PRN (11:55)
[2023-10-13] MEDS ORDERED: acetaminophen 325mg tablet PO PRN (11:55)
[2023-10-13] MEDS ORDERED: potassium Cl 40MEQ/1/2NS 520ml 520 ML IV PRN (11:55)
[2023-10-13] MEDS ORDERED: magnesium 2GM in 50ml NS 50 ML IV PRN (11:55)
[2023-10-13] MEDS ORDERED: dextrose 50%-water 50ml dispensing syringe IV PRN ×3 (11:55)
[2023-10-13] MEDS ORDERED: magnesium 4gm in 100ml NS 100 ML IV PRN (11:55)
[2023-10-13] MEDS ORDERED: mag hydrox/Alum hydrox/simeth 30ml oral suspension PO PRN (11:55)
[2023-10-13] MEDS ORDERED: DEXTROSE 15 GM of carb/4 tabs (each vial/BOTTLE has 4 tablets) PO PRN ×2 (11:55)
[2023-10-13] MEDS ORDERED: potassium Cl 20 mEq SR tablet PO PRN ×2 (11:55)
[2023-10-13] MEDS: insulin Lispro (HumaLOG) vial - multi-dose SQ SCH (12:00)
[2023-10-13] MEDS ORDERED: UNABLE TO OBTAIN (12:38)
[2023-10-13] MEDS: lactulose 20gm/30ml cup PO ONE (12:51)
[2023-10-13 13:40] VITALS: BP 110/60; PULSE 80; RESP 11; TEMP 95.5; O2SAT 95
[2023-10-13] MEDS: lactulose 20gm/30ml cup PO SCH (14:00)
[2023-10-13] MEDS: HYDROcodone/acetaminophen 10/325mg tab PO PRN (14:11)
[2023-10-13] MEDS: thiamine 100mg/ml 2ml inj. IV SCH (14:18)
[2023-10-13] MEDS: LORazepam 2 mg/ml vial IV PRN (15:20)
[2023-10-13] MEDS ORDERED: INSULIN LISPRO 100 UNIT/ML INSULN.PEN MULTI-DOSE SQ ONE (15:35)
[2023-10-13] MEDS: insulin Lispro (HumaLOG) vial - multi-dose SQ ONE (16:00)
[2023-10-13 20:00] VITALS: RESP 16; O2SAT 99
[2023-10-13] MEDS: docusate sod 100mg capsule PO SCH (20:00)
[2023-10-13] MEDS: K and/or MAG REPLACEMENT MC SCH (20:46)
[2023-10-13 22:00] VITALS: BP 119/59; PULSE 70; RESP 16; TEMP 98.1; O2SAT 99
[2023-10-14 06:41] VITALS: BP 99/48; PULSE 64; RESP 14; TEMP 98.1; O2SAT 95
[2023-10-14 07:07] LABS: BASOPHILS # (AUTO) 0.1 X10'3 (0-0.2); BASOPHILS % (AUTO) 1.3 % (0-1); EOSINOPHILS # (AUTO) 0.3 X10'3 (0-0.9); EOSINOPHILS % (AUTO) 3.6 % (0-6); HEMOGLOBIN 14.9 g/dl (14.0-17.9); LYMPHOCYTES % (AUTO) 38.3 % (21-51); MEAN CORPUSCULAR HEMOGLOBIN 33.7 PG (27.0-31.0); MEAN CORPUSCULAR HGB CONC 33.9 g/dL (33.0-36.5); MEAN CORPUSCULAR VOLUME 99.3 FL (78-98); MEAN PLATELET VOLUME 9.7 FL (7.4-10.4); MONOCYTES # (AUTO) 1.4 X10'3 (0-0.9); MONOCYTES % (AUTO) 18.8 % (2-12); NEUTROPHILS # (AUTO) 2.9 X10'3 (1.8-7.7); PLATELET COUNT 94 X10'3 (140-440); RED BLOOD COUNT 4.43 X10'6 (4.70-6.10); RED CELL DISTRIBUTION WIDTH 14.1 % (11.5-14.5); WHITE BLOOD COUNT 7.7 X10'3 (4.5-11.0)
[2023-10-14 07:38] LABS: ALANINE AMINOTRANSFERASE 59 U/L (12-78); ALBUMIN 2.1 G/DL (3.4-5.0); ALBUMIN/GLOBULIN RATIO 0.5 (1.1-1.5); ALKALINE PHOSPHATASE 160 IU/L (46-116); ANION GAP 6 (8-16); ASPARTATE AMINO TRANSFERASE 47 U/L (10-37); BILIRUBIN,TOTAL 2.4 MG/DL (0.1-1.0); BLOOD UREA NITROGEN 15 MG/DL (7-18); BUN/CREATININE RATIO 16.7 (10.0-20.0); CALCIUM 8.2 MG/DL (8.5-10.1); CHLORIDE 112 MMOL/L (99-107); CHOL/HDL RATIO 3.8 (0.00-4.99); CHOLESTEROL 195 MG/DL (0-200); GLUCOSE 263 MG/DL (70-104); HDL CHOLESTEROL 51 MG/DL (35-60); LDL CHOLESTEROL 118 MG/DL (50-100); MAGNESIUM 1.6 MG/DL (1.5-2.4); POTASSIUM 4.2 MMOL/L (3.5-5.1); SODIUM 144 MMOL/L (135-145); TRIGLYCERIDES 133 MG/DL (20-135); eCRCL 74 ML/MIN; eGFR 86 ML/MIN
[2023-10-14] MEDS: folic acid 1mg/0.2ml inj IV SCH (08:00)
[2023-10-14 08:15] VITALS: RESP 14; O2SAT 95
[2023-10-14] MEDS: enoxaparin 40mg/0.4ml syringe SUBCUT SCH (09:24)
[2023-10-14 10:00] VITALS: BP 121/66; PULSE 69; RESP 11; TEMP 98.1; O2SAT 94
[2023-10-14] MEDS: insulin glargine (Lantus) pen - multi-dose SQ SCH (10:15)
[2023-10-14] MEDS ORDERED: LIDOcaine 2% 10ml TOPICAL JELLY (Urojet) TP ONE (17:40)
[2023-10-14 18:00] VITALS: BP 136/86; PULSE 121; RESP 21; TEMP 97.5; O2SAT 98
[2023-10-14] MEDS: LidoCAINE 2% Topical Jelly 11mL syringe (UROJET) TOP ONE (18:00)
[2023-10-14] MEDS: nystatin 500,000 unit/5ML UD oral suspension PO SCH (21:12)
[2023-10-14] MEDS: docusate sodium 100mg/10ml UD cup PO SCH (21:12)
[2023-10-14 22:00] VITALS: BP 95/60; PULSE 64; RESP 14; TEMP 98; O2SAT 97
[2023-10-15 06:41] VITALS: BP 128/69; PULSE 66; RESP 20; TEMP 97.6; O2SAT 96
[2023-10-15 07:07] LABS: BASOPHILS # (AUTO) 0.1 X10'3 (0-0.2); BASOPHILS % (AUTO) 1.1 % (0-1); EOSINOPHILS # (AUTO) 0.3 X10'3 (0-0.9); EOSINOPHILS % (AUTO) 3.3 % (0-6); HEMATOCRIT 44.2 % (42.0-52.0); HEMOGLOBIN 15.2 g/dl (14.0-17.9); LYMPHOCYTES # (AUTO) 3.2 X10'3 (1.1-4.8); LYMPHOCYTES % (AUTO) 40.5 % (21-51); MEAN CORPUSCULAR HEMOGLOBIN 34.1 PG (27.0-31.0); MEAN CORPUSCULAR HGB CONC 34.3 g/dL (33.0-36.5); MEAN CORPUSCULAR VOLUME 99.3 FL (78-98); MEAN PLATELET VOLUME 10.3 FL (7.4-10.4); MONOCYTES # (AUTO) 1.3 X10'3 (0-0.9); MONOCYTES % (AUTO) 16.7 % (2-12); NEUTROPHILS % (AUTO) 38.4 % (42-75); PLATELET COUNT 97 X10'3 (140-440); RED BLOOD COUNT 4.45 X10'6 (4.70-6.10); RED CELL DISTRIBUTION WIDTH 14.2 % (11.5-14.5); WHITE BLOOD COUNT 7.8 X10'3 (4.5-11.0)
[2023-10-15 07:35] LABS: ALANINE AMINOTRANSFERASE 52 U/L (12-78); ALBUMIN 2.1 G/DL (3.4-5.0); ALBUMIN/GLOBULIN RATIO 0.5 (1.1-1.5); ALKALINE PHOSPHATASE 162 IU/L (46-116); ANION GAP 4 (8-16); ASPARTATE AMINO TRANSFERASE 55 U/L (10-37); BILIRUBIN,TOTAL 2.4 MG/DL (0.1-1.0); BLOOD UREA NITROGEN 15 MG/DL (7-18); BUN/CREATININE RATIO 19.5 (10.0-20.0); CALCIUM 8.2 MG/DL (8.5-10.1); CHLORIDE 115 MMOL/L (99-107); CREATININE 0.77 MG/DL (0.60-1.10); GLUCOSE 108 MG/DL (70-104); MAGNESIUM 1.7 MG/DL (1.5-2.4); POTASSIUM 3.7 MMOL/L (3.5-5.1); SODIUM 146 MMOL/L (135-145); TOTAL CARBON DIOXIDE 26.6 MMOL/L (24-32); TOTAL PROTEIN 6.3 G/DL (6.4-8.2); eCRCL 87 ML/MIN; eGFR > 90 ML/MIN
[2023-10-15 08:10] VITALS: RESP 20; O2SAT 96
[2023-10-15] MEDS: lisinopril 2.5mg tablet PO SCH (08:26)
[2023-10-15] MEDS: FLUoxetine 20mg capsule PO SCH (08:26)
[2023-10-15] MEDS: atorvastatin 20mg tablet PO SCH (08:26)
[2023-10-15 18:00] VITALS: BP 128/65; PULSE 87; RESP 15; TEMP 97.9; O2SAT 91
[2023-10-15] MEDS ORDERED: CefTRIAXone/D5W-Rocephin 1gm 50 ML IV ONE (19:35)
[2023-10-15 20:00] VITALS: RESP 15; O2SAT 91
[2023-10-15] MEDS: CefTRIAXone/D5W-Rocephin 1gm 50 ML IV SCH (20:57)
[2023-10-15] MEDS: LORazepam 1 MG tablet PO PRN (21:02)
[2023-10-15 22:00] VITALS: BP 90/51; PULSE 64; RESP 12; TEMP 97.3; O2SAT 98
[2023-10-16] VITALS (7 sets, daily range): BP systolic 89–148; BP diastolic 42–87; PULSE 61–72; RESP 12–18; TEMP 97.2–98.3; O2SAT 96–98
[2023-10-16 07:06] LABS: ALANINE AMINOTRANSFERASE 61 U/L (12-78); ALBUMIN 2.1 G/DL (3.4-5.0); ALBUMIN/GLOBULIN RATIO 0.5 (1.1-1.5); ALKALINE PHOSPHATASE 152 IU/L (46-116); ANION GAP 8 (8-16); ASPARTATE AMINO TRANSFERASE 65 U/L (10-37); BASOPHILS # (AUTO) 0.1 X10'3 (0-0.2); BASOPHILS % (AUTO) 1.3 % (0-1); BILIRUBIN,TOTAL 2.1 MG/DL (0.1-1.0); BLOOD UREA NITROGEN 14 MG/DL (7-18); BUN/CREATININE RATIO 16.3 (10.0-20.0); CALCIUM 8.3 MG/DL (8.5-10.1); CHLORIDE 111 MMOL/L (99-107); CREATININE 0.86 MG/DL (0.60-1.10); EOSINOPHILS # (AUTO) 0.3 X10'3 (0-0.9); EOSINOPHILS % (AUTO) 4.8 % (0-6); GLUCOSE 104 MG/DL (70-104); HEMATOCRIT 43.8 % (42.0-52.0); LYMPHOCYTES # (AUTO) 2.8 X10'3 (1.1-4.8); LYMPHOCYTES % (AUTO) 39.9 % (21-51); MAGNESIUM 1.6 MG/DL (1.5-2.4); MEAN CORPUSCULAR HEMOGLOBIN 33.6 PG (27.0-31.0); MEAN CORPUSCULAR HGB CONC 34.1 g/dL (33.0-36.5); MEAN CORPUSCULAR VOLUME 98.3 FL (78-98); MEAN PLATELET VOLUME 9.6 FL (7.4-10.4); MONOCYTES # (AUTO) 1.2 X10'3 (0-0.9); MONOCYTES % (AUTO) 17.9 % (2-12); NEUTROPHILS # (AUTO) 2.5 X10'3 (1.8-7.7); NEUTROPHILS % (AUTO) 36.1 % (42-75); PLATELET COUNT 91 X10'3 (140-440); POTASSIUM 3.9 MMOL/L (3.5-5.1); RED BLOOD COUNT 4.46 X10'6 (4.70-6.10); SODIUM 145 MMOL/L (135-145); TOTAL CARBON DIOXIDE 26.4 MMOL/L (24-32); TOTAL PROTEIN 6.3 G/DL (6.4-8.2); WHITE BLOOD COUNT 6.9 X10'3 (4.5-11.0); eCRCL 77 ML/MIN; eGFR 90 ML/MIN
[2023-10-16] MEDS: folic acid 1mg tablet PO SCH (08:20)
[2023-10-16] MEDS: thiamine 100mg tablet PO SCH (08:20)
[2023-10-16] MEDS: lactulose 20gm/30ml cup PO SCH (14:08)
[2023-10-16] MEDS: haloperidol lactate 5mg/ml inj IM PRN (15:18)
[2023-10-16] MEDS: HYDROcodone/acetaminophen 5mg/325mg tablet PO PRN (21:23)
[2023-10-17 06:00] VITALS: BP 104/67; PULSE 77; RESP 16; TEMP 98.7; O2SAT 94
[2023-10-17] MEDS: thiamine 100mg tablet PO SCH (08:00)
[2023-10-17 08:19] LABS: BASOPHILS # (AUTO) 0.1 X10'3 (0-0.2); BASOPHILS % (AUTO) 0.9 % (0-1); EOSINOPHILS # (AUTO) 0.4 X10'3 (0-0.9); EOSINOPHILS % (AUTO) 5.2 % (0-6); HEMATOCRIT 41.9 % (42.0-52.0); HEMOGLOBIN 14.4 g/dl (14.0-17.9); LYMPHOCYTES # (AUTO) 2.8 X10'3 (1.1-4.8); LYMPHOCYTES % (AUTO) 39.3 % (21-51); MEAN CORPUSCULAR HEMOGLOBIN 33.5 PG (27.0-31.0); MEAN CORPUSCULAR HGB CONC 34.4 g/dL (33.0-36.5); MEAN CORPUSCULAR VOLUME 97.5 FL (78-98); MEAN PLATELET VOLUME 10.2 FL (7.4-10.4); MONOCYTES # (AUTO) 1.2 X10'3 (0-0.9); NEUTROPHILS # (AUTO) 2.6 X10'3 (1.8-7.7); NEUTROPHILS % (AUTO) 37.6 % (42-75); PLATELET COUNT 88 X10'3 (140-440); RED CELL DISTRIBUTION WIDTH 13.4 % (11.5-14.5)
[2023-10-17 08:50] LABS: ALANINE AMINOTRANSFERASE 55 U/L (12-78); ALBUMIN 1.9 G/DL (3.4-5.0); ALBUMIN/GLOBULIN RATIO 0.5 (1.1-1.5); ALKALINE PHOSPHATASE 148 IU/L (46-116); ANION GAP 5 (8-16); ASPARTATE AMINO TRANSFERASE 77 U/L (10-37); BILIRUBIN,TOTAL 2.6 MG/DL (0.1-1.0); BLOOD UREA NITROGEN 12 MG/DL (7-18); BUN/CREATININE RATIO 16.2 (10.0-20.0); CALCIUM 7.7 MG/DL (8.5-10.1); CHLORIDE 108 MMOL/L (99-107); CREATININE 0.74 MG/DL (0.60-1.10); GLUCOSE 88 MG/DL (70-104); MAGNESIUM 1.5 MG/DL (1.5-2.4); POTASSIUM 3.7 MMOL/L (3.5-5.1); SODIUM 139 MMOL/L (135-145); TOTAL CARBON DIOXIDE 26.3 MMOL/L (24-32); TOTAL PROTEIN 5.9 G/DL (6.4-8.2); eCRCL 90 ML/MIN; eGFR > 90 ML/MIN
[2023-10-17 10:00] VITALS: BP 103/47; PULSE 66; RESP 18; TEMP 97.9; O2SAT 97
[2023-10-17 17:14] VITALS: BP 96/58
[2023-10-17 18:00] VITALS: BP 97/65; PULSE 60; RESP 16; TEMP 98.7; O2SAT 96
[2023-10-17 20:00] VITALS: RESP 16; O2SAT 96
[2023-10-17 22:00] VITALS: BP 110/64; PULSE 65; RESP 16; TEMP 97.6; O2SAT 98
[2023-10-18 02:42] VITALS: BP 109/64; PULSE 63; RESP 16; TEMP 98.1; O2SAT 94
[2023-10-18 06:00] VITALS: BP 92/51; PULSE 64; RESP 16; TEMP 98.1; O2SAT 98
[2023-10-18 07:32] LABS: BASOPHILS % (AUTO) 0.5 % (0-1); EOSINOPHILS # (AUTO) 0.4 X10'3 (0-0.9); EOSINOPHILS % (AUTO) 5.1 % (0-6); HEMATOCRIT 42.3 % (42.0-52.0); HEMOGLOBIN 14.6 g/dl (14.0-17.9); LYMPHOCYTES % (AUTO) 41.1 % (21-51); MEAN CORPUSCULAR HEMOGLOBIN 33.2 PG (27.0-31.0); MEAN CORPUSCULAR HGB CONC 34.4 g/dL (33.0-36.5); MEAN CORPUSCULAR VOLUME 96.4 FL (78-98); MEAN PLATELET VOLUME 9.7 FL (7.4-10.4); MONOCYTES # (AUTO) 1.3 X10'3 (0-0.9); NEUTROPHILS # (AUTO) 2.7 X10'3 (1.8-7.7); NEUTROPHILS % (AUTO) 36.3 % (42-75); PLATELET COUNT 90 X10'3 (140-440); RED BLOOD COUNT 4.39 X10'6 (4.70-6.10); RED CELL DISTRIBUTION WIDTH 13.4 % (11.5-14.5); WHITE BLOOD COUNT 7.4 X10'3 (4.5-11.0)
[2023-10-18] MEDS: folic acid 1mg tablet PO SCH (08:00)
[2023-10-18 08:03] LABS: ALANINE AMINOTRANSFERASE 62 U/L (12-78); ALBUMIN/GLOBULIN RATIO 0.5 (1.1-1.5); ALKALINE PHOSPHATASE 156 IU/L (46-116); ANION GAP 7 (8-16); ASPARTATE AMINO TRANSFERASE 87 U/L (10-37); BILIRUBIN,TOTAL 2.2 MG/DL (0.1-1.0); BLOOD UREA NITROGEN 11 MG/DL (7-18); BUN/CREATININE RATIO 16.2 (10.0-20.0); CALCIUM 8.1 MG/DL (8.5-10.1); CHLORIDE 106 MMOL/L (99-107); CREATININE 0.68 MG/DL (0.60-1.10); GLUCOSE 143 MG/DL (70-104); POTASSIUM 3.9 MMOL/L (3.5-5.1); SODIUM 138 MMOL/L (135-145); TOTAL CARBON DIOXIDE 24.8 MMOL/L (24-32); TOTAL PROTEIN 6.1 G/DL (6.4-8.2); eCRCL 98 ML/MIN; eGFR > 90 ML/MIN
[2023-10-18 11:00] VITALS: BP 122/65; PULSE 60; RESP 16; TEMP 98.1; O2SAT 98
[2023-10-18] MEDS: INSULIN LISPRO 100 UNIT/ML INSULN.PEN MULTI-DOSE SQ SCH (17:00)
[2023-10-18] MEDS: NUT.TX.GLUC.INTOLER,LAC-FR,SOY (GLUCERNA) 237 ML PO SCH (18:00)
[2023-10-18 22:00] VITALS: BP 107/57; PULSE 61; RESP 15; TEMP 97.5; O2SAT 99
[2023-10-19 02:00] VITALS: BP 109/56; PULSE 58; RESP 13; TEMP 97.6; O2SAT 98
[2023-10-19 06:00] VITALS: BP 103/51; PULSE 67; RESP 16; TEMP 98.3; O2SAT 97
[2023-10-19 18:00] VITALS: BP 111/53; PULSE 56; RESP 16; TEMP 97.2; O2SAT 99
[2023-10-19 20:00] VITALS: RESP 16; O2SAT 99
[2023-10-19 22:00] VITALS: BP 113/63; PULSE 58; RESP 16; TEMP 98.1; O2SAT 98
[2023-10-20 06:00] VITALS: BP 97/39; PULSE 61; RESP 16; TEMP 98.6; O2SAT 96
[2023-10-20 08:00] VITALS: RESP 16; O2SAT 96
[2023-10-20 10:00] VITALS: BP 93/55; PULSE 70; RESP 18; TEMP 97.7; O2SAT 97
[2023-10-20 17:30] VITALS: RESP 16
[2023-10-20 18:00] VITALS: BP 98/58; PULSE 69; RESP 18; TEMP 98.1; O2SAT 97
[2023-10-20 22:00] VITALS: BP 114/49; PULSE 66; RESP 16; TEMP 97.7; O2SAT 98
[2023-10-21 06:00] VITALS: BP 93/43; PULSE 62; RESP 18; TEMP 97.9; O2SAT 93
[2023-10-21 08:00] VITALS: RESP 16; O2SAT 97
[2023-10-21 10:00] VITALS: BP 108/54; PULSE 64; RESP 15; TEMP 97.8; O2SAT 97
[2023-10-21] MEDS ORDERED: INSULIN LISPRO 100 UNIT/ML INSULN.PEN MULTI-DOSE SQ SCH (12:00)
[2023-10-21] MEDS: insulin Lispro (HumaLOG) vial - multi-dose SQ SCH ×2 (12:52→17:18)
[2023-10-21] MEDS ORDERED: INSULIN LISPRO 100 UNIT/ML INSULN.PEN MULTI-DOSE SQ ONE (13:18)
[2023-10-21 18:00] VITALS: BP 118/54; PULSE 57; RESP 18; TEMP 98.5; O2SAT 96
[2023-10-21 22:00] VITALS: BP 100/57; PULSE 62; RESP 18; TEMP 97.1; O2SAT 98
[2023-10-21] MEDS: insulin glargine (Lantus) pen - multi-dose SQ SCH (22:17)
[2023-10-22 06:00] VITALS: BP 116/67; PULSE 57; RESP 18; TEMP 98.1; O2SAT 98
[2023-10-22 08:00] VITALS: RESP 18; O2SAT 98
[2023-10-22 10:00] VITALS: BP 105/60; PULSE 63; RESP 16; TEMP 97.7; O2SAT 99
[2023-10-22 18:00] VITALS: BP 107/59; PULSE 62; RESP 14; TEMP 98.2; O2SAT 95
[2023-10-22 22:00] VITALS: BP 113/52; PULSE 72; RESP 18; TEMP 98.3; O2SAT 100
[2023-10-23 07:11] VITALS: BP 101/54; PULSE 76; RESP 17; TEMP 97.3; O2SAT 98
[2023-10-23 08:00] VITALS: RESP 16; O2SAT 99
[2023-10-23 10:00] VITALS: BP 95/76; PULSE 70; RESP 16; TEMP 98.7; O2SAT 97
[2023-10-23 18:00] VITALS: BP 92/41; PULSE 52; RESP 15; TEMP 97.9; O2SAT 100
[2023-10-23 22:00] VITALS: BP 108/55; PULSE 63; RESP 16; TEMP 97.6; O2SAT 99
[2023-10-24 06:33] VITALS: BP 99/55; PULSE 55; RESP 15; TEMP 97.6; O2SAT 97
[2023-10-24 10:00] VITALS: BP 107/62; PULSE 61; RESP 15; TEMP 98; O2SAT 96
[2023-10-24 18:00] VITALS: BP 109/58; PULSE 55; RESP 13; TEMP 97.8; O2SAT 98
[2023-10-24 22:00] VITALS: BP 124/58; PULSE 60; RESP 14; TEMP 97.8; O2SAT 96
[2023-10-25 06:00] VITALS: BP 99/60; PULSE 57; RESP 16; TEMP 98.2; O2SAT 97
[2023-10-25 08:00] VITALS: RESP 16; O2SAT 97
[2023-10-25 10:00] VITALS: BP 111/59; PULSE 57; RESP 14; TEMP 97.5; O2SAT 96
[2023-10-25 18:00] VITALS: BP 100/50; PULSE 59; RESP 18; TEMP 97.8; O2SAT 100
[2023-10-25 20:15] VITALS: RESP 18; O2SAT 100
[2023-10-25] MEDS: insulin glargine (Lantus) pen - multi-dose SQ SCH (21:49)
[2023-10-25 22:00] VITALS: BP 109/56; PULSE 59; RESP 14; TEMP 97.8; O2SAT 97
[2023-10-26 06:00] VITALS: BP 107/60; PULSE 67; RESP 12; TEMP 97.8; O2SAT 97
[2023-10-26 08:00] VITALS: RESP 12; O2SAT 97
[2023-10-26] MEDS ORDERED: insulin glargine (Lantus) pen - multi-dose SQ SCH ×2 (08:00→21:00)
[2023-10-26 10:00] VITALS: BP 93/53; PULSE 57; RESP 16; TEMP 98.1; O2SAT 97
[2023-10-26] MEDS ORDERED: LISI2.5T14 PO (13:46)
[2023-10-26] MEDS ORDERED: ATOR20TA66 PO (13:46)
[2023-10-26] MEDS ORDERED: FLUO20CA46 PO (13:46)
[2023-10-27] MEDS ORDERED: insulin glargine (Lantus) pen - multi-dose SQ SCH (08:00)
== END 2023-10-26 14:37 | disposition home or self-care (01) | DRG 280 ==
LOC: ER 08:47 → ED HOLD 12:01 → ORTHO 4S 13:33
PROVIDERS: ADMIT Internal Medicine; ATTEND Internal Medicine
DX: K76.82 Hepatic encephalopathy (principal); K70.30 Alcoholic cirrhosis of liver without ascites; K72.90 Hepatic failure, unspecified without coma; D69.6 Thrombocytopenia, unspecified; B19.20 Unspecified viral hepatitis C without hepatic coma; F10.10 Alcohol abuse, uncomplicated; E11.65 Type 2 diabetes mellitus with hyperglycemia; Y90.9 Presence of alcohol in blood, level not specified; Z79.4 Long term (current) use of insulin; Z79.899 Other long term (current) drug therapy
CPT/HCPCS: 36415; 70450; 71045; 72125; 80053; 80061; 80305; 80320; 81001; 82140; 82948; 83036; 83605; 83735; 84484; 85025; 87040; 87077; 87081; 87186; 93005; 93306; 96365; 97116; 97161; 97530; 97535; 99285; A4314; A5200; A6250; A6258; A6590; C1758; G0378; J0696; J1630; J1650; J1815; J2060; J3411; J3490; J7030